=== PATIENT | female | born 1930 | race Caucasian/White ===

== ENCOUNTER 2017-04-13 06:24 | Inpatient (IN) | payer MEDICARE ==
[~2017-04-13] VITALS: Ht 162.5 cm; Wt 68.2 kg
[2017-04-13] VITALS (7 sets, daily range): BP systolic 88–158; BP diastolic 48–83
[~2017-04-13 06:24] MED LIST: A & D OINTMENT1 OIN T; ACETA PO; ACETAMINOPHEN325 M2; AGGRENOX 25 MG-1 CER PO; AGGRENOX 25/2001 EA PO; AMOXIL500 M1 PO; ASPIRIN81 MG; ATIVAN0.5 MG PO; ATIVAN1 MG PO; ATOXIMETIN-B1 CAP PO; ATROVENT NASAL15 ML; AZITHROMYCIN250 MG PO; CARE PO; CEPACOL2 M1 PO; CIPRO500 MG PO; DAYPRO600 M1 PO; DESOXIMETASONE0.25% T; DETROL PO; DEXTROMETHORPHAN PO; DILANTIN50 MG PO; DULCOLAX10 M1 RC; EARACHE; FIBER THERAPY0.52 GM PO; FLUTICASON0.05 MG/AC; FUROSEMIDE20 MG PO; FUROSEMIDE40 MG PO; IMODIUM2 MG PO; K-DUR20 MEQ PO; K-TAB20 MEQ PO; LEVAQUIN500 M2 PO; LOPERAMIDE HCL2 M1 PO; LORATADINE10 M1 PO; LORAZEPAM0.5 MG PO; MAALOX UD SUSP.30 ML PO; MACROBID100 M1 PO; MACRODANTIN100 MG PO; MAPAP500 MG PO; MELATONIN10 M1 PO; METFORMIN HCL500 MG PO; MIDODRINE HCL5 MG PO; MILK OF MA400 MG/5 M PO; MIRALAX POWDER17 G1 PO; MISOPROSTOL200 MCG PO; MULTIPLE VITAMI1 TAB PO; NITROFURANTOIN100 MG PO; NITROGLYCER0.1 MG/HR T; OMEPRAZOLE D/R20 MG PO; OXYBUTYNIN5 MG PO; OYSTER CALCIUM/1 TA1 PO; PHENOBARBITAL32.4 M1 PO; PHENOBARBITAL32.4 MG PO; PHENYTOIN SODI100 M3 PO; PHENYTOIN100 MG PO; POTASSIUM CHLO20 MEQ; POTASSIUM CHLO20 MEQ PO; PRAVASTATIN SOD40 MG PO; PYRIDIATE200 MG PO; PYRIDIUM200 MG PO; Plendil2.5 MG PO; ROBITUSSIN100 MG/5 M PO; SERTRALINE HCL50 MG PO; SERTRALINE HYDR50 MG PO; TEARS NATURALE1 EACH OP; TOVIAZ8 MG PO; TRAMADOL50 MG; TYLENOL325 M2 PO; ULTRAM50 MG PO; VESICARE10 MG; VISINE 30 ML15 ML OU; VOLTAREN1% T; ZOLOFT25 MG PO; ZOLOFT50 MG PO; [UNRECOGNIZED DRUG - OTHER] PO; [UNRECOGNIZED DRUG - OTHER] PO; [UNRECOGNIZED DRUG - OTHER] PO
[2017-04-13 06:48] LABS: BASO % 0.6 % (0.0-1.0); EOS # 0.5 10*3/uL (0.0-0.4); EOS % 7.5 % (1.0-4.0); HEMATOCRIT 37.6 % (37.0-47.0); HEMOGLOBIN 12.1 g/dl (12.0-16.0); LYMPH # 1.4 10*3/uL (1.3-4.4); LYMPH % 19.4 % (27.0-41.0); MEAN CELL VOLUME 95.9 fl (81.0-99.0); MEAN CORPUSCULAR HGB 30.9 pg (27.0-31.0); MEAN CORPUSCULAR HGB CONC 32.2 g/dl (33.0-37.0); MEAN PLATELET VOLUME 8.7 fl (9.6-12.3); MONO # 0.7 10*3/uL (0.1-1.0); MONO % 10.1 % (3.0-9.0); NEUT # 4.3 10*3/uL (2.3-7.9); NEUT % 62.1 % (47.0-73.0); PLATELET COUNT AUTOMATED 295 10*3/uL (130-400); RED BLOOD COUNT 3.92 10*6/uL (4.10-5.10); RED CELL DISTRI WIDTH 14.7 % (0-14.5)
[2017-04-13 07:02] LABS: ACT PARTIAL THROMBO TIME 24.1 SECONDS (20.8-31.5); INTERNATIONAL NORM RATIO 1.1 (2.0-3.5)
[2017-04-13 07:07] LABS: ALBUMIN 2.6 gm/dl (3.1-4.5); ALKALINE PHOSPHATASE 110 U/L (45-117); BUN 5 mg/dl (7-24); CHLORIDE 112 mmol/L (98-107); CREATININE 0.85 mg/dL (0.55-1.02); LIPASE 80 U/L (73-393); MAGNESIUM 2.3 mg/dL (1.5-2.1); POTASSIUM 3.7 mmol/L (3.5-5.1); SGOT/AST 17 IU/L (3-35); SGPT/ALT 16 U/L (12-78); SODIUM 142 mmol/L (136-145); TROPONIN I 0.027 ng/ml (<0.045)
[2017-04-13 07:40] LABS: BILIRUBIN NEGATIVE (NEGATIVE); BLOOD NEGATIVE (NEGATIVE); CLARITY SL CLOUDY (CLEAR); COLOR YELLOW (YELLOW); GLUCOSE NEGATIVE (NEGATIVE); KETONE NEGATIVE (NEGATIVE); LEUKO ESTERASE 3+ (NEGATIVE); NITRITE POSITIVE (NEGATIVE); PH 6.5 (5.0-9.0); SPECIFIC GRAVITY <= 1.005 (1.005-1.030); UROBILINOGEN 0.2 E.U./dl (0.2-1.0)
[2017-04-13 07:54] LABS: BACTERIA 3+; RBC 0-2 rbc/hpf (0-2)
[2017-04-13] MEDS ORDERED: DUONEB 3 MG/3 ML3 M1 INH ×2 (10:05→10:11)
[2017-04-13] MEDS ORDERED: PAIN RELIEVER650 MG PO (10:10)
[2017-04-13] MEDS ORDERED: AGGRENOX 25/2001 EA PO (10:11)
[2017-04-13] MEDS ORDERED: NORCO 5-325 TA1 EACH PO (10:13)
[2017-04-13] MEDS ORDERED: PHENOBARBITAL32.4 M2 PO (10:23)
[2017-04-13] MEDS ORDERED: EXTENDED PHENY200 MG PO (10:25)
[2017-04-13] MEDS ORDERED: PHENYTOIN50 M1 PO (10:27)
[2017-04-13] MEDS ORDERED: TEARS NATURALE OPH (10:29)
[2017-04-13] MEDS ORDERED: ZOLOFT50 MG PO (10:33)
[2017-04-13] MEDS ORDERED: VITAMIN D-32000 UNIT PO (10:33)
[2017-04-13] MEDS ORDERED: NITRO-DUR1 EACH TD (12:10)
[2017-04-14] VITALS: BP 145/56
[2017-04-14 04:00] VITALS: BP 140/60
[2017-04-14 05:48] LABS: BASO % 0.4 % (0.0-1.0); EOS # 0.4 10*3/uL (0.0-0.4); EOS % 5.6 % (1.0-4.0); HEMATOCRIT 40.3 % (37.0-47.0); LYMPH # 1.2 10*3/uL (1.3-4.4); LYMPH % 17.2 % (27.0-41.0); MEAN CELL VOLUME 96.4 fl (81.0-99.0); MEAN CORPUSCULAR HGB 31.1 pg (27.0-31.0); MEAN CORPUSCULAR HGB CONC 32.3 g/dl (33.0-37.0); MEAN PLATELET VOLUME 9.1 fl (9.6-12.3); MONO # 0.6 10*3/uL (0.1-1.0); MONO % 9.1 % (3.0-9.0); NEUT # 4.5 10*3/uL (2.3-7.9); NEUT % 67.3 % (47.0-73.0); PLATELET COUNT AUTOMATED 311 10*3/uL (130-400); RED BLOOD COUNT 4.18 10*6/uL (4.10-5.10); RED CELL DISTRI WIDTH 14.6 % (0-14.5); WHITE BLOOD COUNT 6.7 10*3/uL (4.8-10.8)
[2017-04-14 05:59] LABS: ALBUMIN 2.7 gm/dl (3.1-4.5); ALKALINE PHOSPHATASE 115 U/L (45-117); BUN 7 mg/dl (7-24); CHLORIDE 109 mmol/L (98-107); CHOLESTEROL 170 mg/dL (<200); CREATININE 0.91 mg/dL (0.55-1.02); HDL CHOLESTEROL 44 mg/dl (40-60); LDL CHOLESTEROL 102 mg/dL (9-159); MAGNESIUM 2.1 mg/dL (1.5-2.1); PHOSPHOROUS 3.3 mg/dL (2.5-4.9); POTASSIUM 3.5 mmol/L (3.5-5.1); SGOT/AST 20 IU/L (3-35); SGPT/ALT 19 U/L (12-78); SODIUM 142 mmol/L (136-145); TOTAL PROTEIN 7.4 gm/dL (6.4-8.2); TRIGLYCERIDES 119 mg/dl (<150); VLDL CHOLESTEROL 24 mg/dL (6-40)
[2017-04-14 06:14] LABS: PHENOBARBITAL (LUMINAL) 13.1 ug/ml (15-40); PHENYTOIN (DILANTIN) 5.9 ug/ml (10-20)
[2017-04-14 06:34] LABS: ACT PARTIAL THROMBO TIME 25.4 SECONDS (20.8-31.5); INTERNATIONAL NORM RATIO 1.1 (2.0-3.5)
[2017-04-14 08:00] VITALS: BP 156/40
[2017-04-14 08:45] LABS: VITAMIN D, 25-HYDROXY 39.6 ng/mL (30-100)
[2017-04-14 12:00] VITALS: BP 142/50
[2017-04-14 16:00] VITALS: BP 156/46
[2017-04-14 20:00] VITALS: BP 128/52; BP 138/64
[2017-04-15] VITALS: BP 152/54
[2017-04-15 08:00] VITALS: BP 152/59
[2017-04-15 08:24] LABS: BASO % 0.4 % (0.0-1.0); EOS # 0.4 10*3/uL (0.0-0.4); EOS % 4.6 % (1.0-4.0); HEMATOCRIT 44.3 % (37.0-47.0); HEMOGLOBIN 14.2 g/dl (12.0-16.0); LYMPH # 1.2 10*3/uL (1.3-4.4); LYMPH % 14.1 % (27.0-41.0); MEAN CELL VOLUME 96.7 fl (81.0-99.0); MEAN CORPUSCULAR HGB CONC 32.1 g/dl (33.0-37.0); MEAN PLATELET VOLUME 8.7 fl (9.6-12.3); MONO # 0.7 10*3/uL (0.1-1.0); MONO % 8.2 % (3.0-9.0); NEUT # 6.1 10*3/uL (2.3-7.9); NEUT % 72.3 % (47.0-73.0); PLATELET COUNT AUTOMATED 315 10*3/uL (130-400); RED BLOOD COUNT 4.58 10*6/uL (4.10-5.10); RED CELL DISTRI WIDTH 14.6 % (0-14.5); WHITE BLOOD COUNT 8.4 10*3/uL (4.8-10.8)
[2017-04-15 08:50] LABS: BUN 8 mg/dl (7-24); CHLORIDE 106 mmol/L (98-107); CREATININE 0.86 mg/dL (0.55-1.02); POTASSIUM 3.6 mmol/L (3.5-5.1); SODIUM 142 mmol/L (136-145)
[2017-04-15 12:00] VITALS: BP 115/67
[2017-04-15 16:00] VITALS: BP 111/56
[2017-04-15 20:00] VITALS: BP 135/77
[2017-04-16] VITALS: BP 141/59
[2017-04-16 06:52] LABS: BUN 13 mg/dl (7-24); CHLORIDE 108 mmol/L (98-107); POTASSIUM 3.4 mmol/L (3.5-5.1); SODIUM 141 mmol/L (136-145)
[2017-04-16 06:53] LABS: CREATININE 0.96 mg/dL (0.55-1.02)
[2017-04-16 08:00] VITALS: BP 135/60; BP 147/62
[2017-04-16] MEDS ORDERED: NORCO 5-325 TA1 EACH PO (09:46)
[2017-04-16] MEDS ORDERED: LASIX20 MG PO (09:49)
[2017-04-16] MEDS ORDERED: K-TAB20 MEQ PO (09:49)
[2017-04-16 12:00] VITALS: BP 140/65
== END 2017-04-16 13:09 | disposition other institution (70) | DRG 291 ==
LOC: ED 06:24 → EDHOLD 07:20 → 5E 07:20
PROVIDERS: Internal Medicine; Student in an Organized Health Care Education/Training Program; ADMIT Internal Medicine
DX: I13.0 Hypertensive heart and chronic kidney disease with heart failure and stage 1 through stage 4 chronic kidney disease, or unspecified chronic kidney disease (principal); I50.31 Acute diastolic (congestive) heart failure; E43 Unspecified severe protein-calorie malnutrition; G93.41 Metabolic encephalopathy; I07.1 Rheumatic tricuspid insufficiency; E83.41 Hypermagnesemia; I27.2 Other secondary pulmonary hypertension; N39.0 Urinary tract infection, site not specified; J40 Bronchitis, not specified as acute or chronic; Z96.641 Presence of right artificial hip joint; G40.909 Epilepsy, unspecified, not intractable, without status epilepticus; F32.9 Major depressive disorder, single episode, unspecified; E78.5 Hyperlipidemia, unspecified; N18.3 Chronic kidney disease, stage 3 (moderate); B96.4 Proteus (mirabilis) (morganii) as the cause of diseases classified elsewhere; Z95.0 Presence of cardiac pacemaker; Z85.828 Personal history of other malignant neoplasm of skin; Z87.81 Personal history of (healed) traumatic fracture; Z87.01 Personal history of pneumonia (recurrent); Z68.27 Body mass index [BMI] 27.0-27.9, adult; Z87.440 Personal history of urinary (tract) infections; Z90.49 Acquired absence of other specified parts of digestive tract; Z88.2 Allergy status to sulfonamides; Z88.8 Allergy status to other drugs, medicaments and biological substances; Z79.82 Long term (current) use of aspirin; Z79.899 Other long term (current) drug therapy

== ENCOUNTER 2017-07-22 07:59 | Inpatient (IN) | payer MEDICARE ==
[~2017-07-22] VITALS: Ht 160 cm; Wt 71.7 kg
[~2017-07-22 07:59] MED LIST changes: +DUONEB 3 MG/3 ML3 M1 INH; +EXTENDED PHENY200 MG PO; +LASIX20 MG PO; +NITRO-DUR1 EACH TD; +NORCO 5-325 TA1 EACH PO; +PAIN RELIEVER650 MG PO; +PHENOBARBITAL32.4 M2 PO; +PHENYTOIN50 M1 PO; +TEARS NATURALE OPH; +VITAMIN D-32000 UNIT PO
[2017-07-22 08:10] VITALS: BP 160/62
[2017-07-22 08:34] LABS: BASO % 0.4 % (0.0-1.0); EOS # 0.1 10*3/uL (0.0-0.4); EOS % 1.3 % (1.0-4.0); HEMATOCRIT 38.9 % (37.0-47.0); HEMOGLOBIN 12.6 g/dl (12.0-16.0); LYMPH # 1.3 10*3/uL (1.3-4.4); LYMPH % 13.6 % (27.0-41.0); MEAN CELL VOLUME 95.3 fl (81.0-99.0); MEAN CORPUSCULAR HGB 30.9 pg (27.0-31.0); MEAN CORPUSCULAR HGB CONC 32.4 g/dl (33.0-37.0); MEAN PLATELET VOLUME 9.8 fl (9.6-12.3); MONO # 1.1 10*3/uL (0.1-1.0); NEUT # 7.2 10*3/uL (2.3-7.9); NEUT % 73.4 % (47.0-73.0); PLATELET COUNT AUTOMATED 208 10*3/uL (130-400); RED BLOOD COUNT 4.08 10*6/uL (4.10-5.10); RED CELL DISTRI WIDTH 14.7 % (0-14.5); WHITE BLOOD COUNT 9.8 10*3/uL (4.8-10.8)
[2017-07-22 08:44] LABS: ACT PARTIAL THROMBO TIME 47.6 SECONDS (20.8-31.5); INTERNATIONAL NORM RATIO 3.8 (2.0-3.5)
[2017-07-22 08:54] LABS: ALBUMIN 3.2 gm/dl (3.1-4.5); ALKALINE PHOSPHATASE 114 U/L (45-117); BUN 13 mg/dl (7-24); CHLORIDE 106 mmol/L (98-107); CREATININE 1.02 mg/dL (0.55-1.02); POTASSIUM 4.1 mmol/L (3.5-5.1); SGOT/AST 14 IU/L (3-35); SGPT/ALT 14 U/L (12-78); SODIUM 139 mmol/L (136-145); TOTAL PROTEIN 7.6 gm/dL (6.4-8.2)
--- NOTE | 2017-07-22 09:31 | NUR ---
PT TO ULTRASOUND AT THIS TIME.
--- NOTE | 2017-07-22 09:48 | NUR ---
PT STILL IN ULTRASOUND. ADMISSION REPORT WILL BE CALLED WHEN ANTIBIOTIC IS STARTED AND PATIENT RETURNS TO EXAM ROOM.
--- NOTE | 2017-07-22 10:20 | NUR ---
PT RETURNS FROM ULTRASOUND
[2017-07-22 10:39] VITALS: BP 152/86
--- NOTE | 2017-07-22 10:57 | NUR ---
BERKLEY, NURSE AT [facility] AWARE OF PATIENT BEING ADMITTED.
[2017-07-22 11:14] VITALS: BP 119/63
--- NOTE | 2017-07-22 11:14 | NUR ---
A 86, admitted to , under the services of RUSSEL Oshea DO with a diagnosis of CELLULITIS. Chief complaint is RED, SWOLLEN, WARM LEGS. Patient arrived via stretcher from ER. Monitor applied. Initial assessment completed. Vital signs taken and recorded. RUSSEL OSHEA DO notified of admission to the unit. Orders received. See assessment for past medical history, medications and allergies. Patient and/or family oriented to unit. [facility] visitation policy reviewed. Clothing/patient valuable form completed. TRICIA MANN
[2017-07-22] MEDS ORDERED: ATIVAN0.5 MG PO (12:49)
[2017-07-22] MEDS ORDERED: COUMADIN2 MG PO (12:51)
[2017-07-22] MEDS ORDERED: MILK OF MA400 MG/5 M PO (12:56)
[2017-07-22] MEDS ORDERED: EXTENDED PHENY300 MG PO (12:59)
[2017-07-22] MEDS ORDERED: PROAIR HFA8.5 GM INH (13:01)
[2017-07-22] MEDS ORDERED: VITAMIN D33000 UNIT PO (13:03)
[2017-07-22 16:00] VITALS: BP 150/65
--- NOTE | 2017-07-22 16:05 | NUR ---
DR WASSERMAN NOTIFIED OF CONSULT. STATED THAT HE WOULD SPEAK WITH DR JULIO.
--- NOTE | 2017-07-22 17:37 | NUR ---
MORPHINE 2MG GIVEN FOR BILATERAL LEG PAIN.
[2017-07-22 20:00] VITALS: BP 158/60
[2017-07-23] VITALS: BP 158/57
--- NOTE | 2017-07-23 06:00 | NUR ---
LAB IN WITH PT AT THIS TIME. PT IN BED, DROWSY. PT VOICES NO COMPLAINTS AT THIS TIME. TOLERATED PO MED PASS WELL. WILL CONTINUE TO MONITOR.
[2017-07-23 06:50] LABS: BASO % 0.4 % (0.0-1.0); BUN 13 mg/dl (7-24); CHLORIDE 107 mmol/L (98-107); CREATININE 0.92 mg/dL (0.55-1.02); EOS # 0.2 10*3/uL (0.0-0.4); EOS % 1.6 % (1.0-4.0); HEMOGLOBIN 11.3 g/dl (12.0-16.0); LYMPH # 1.4 10*3/uL (1.3-4.4); LYMPH % 14.5 % (27.0-41.0); MEAN CELL VOLUME 95.1 fl (81.0-99.0); MEAN CORPUSCULAR HGB 30.7 pg (27.0-31.0); MEAN CORPUSCULAR HGB CONC 32.3 g/dl (33.0-37.0); MEAN PLATELET VOLUME 10.2 fl (9.6-12.3); MONO # 1.4 10*3/uL (0.1-1.0); MONO % 14.2 % (3.0-9.0); NEUT # 6.6 10*3/uL (2.3-7.9); PLATELET COUNT AUTOMATED 183 10*3/uL (130-400); RED BLOOD COUNT 3.68 10*6/uL (4.10-5.10); RED CELL DISTRI WIDTH 14.9 % (0-14.5); SODIUM 142 mmol/L (136-145); WHITE BLOOD COUNT 9.6 10*3/uL (4.8-10.8)
[2017-07-23 07:10] LABS: ACT PARTIAL THROMBO TIME 42.3 SECONDS (20.8-31.5); INTERNATIONAL NORM RATIO 2.8 (2.0-3.5)
[2017-07-23 08:00] VITALS: BP 183/66
--- NOTE | 2017-07-23 08:30 | NUR ---
FOREIGN POLICY OFFICER VS. SLEEPING IN CHAIR. PT IS LTC AT [facility].
--- NOTE | 2017-07-23 09:00 | NUR ---
PT C/O BILATERAL LEG PAIN REQUESTED AND ADMINSITERED IVP MORPHINE PER ORDERS, WILL MONITOR EFFECTS, CALL LIGHT WITH IN REACH
--- NOTE | 2017-07-23 09:07 | NUR ---
FREDDY PLUMMER Meir [id number] Please refer to the physician's history and physical for past medical history, comorbid conditions, and allergies. Diagnosis: COAGULOPATHY, CELLULITIS Moy Score: 16,AT RISK WOUND DESCRIPTIONS: Patient has intact scab noted to RLE. No drainage noted. No redness surrounings scab. Bandaid was removed. Surface the patient is resting on: Position Pro SKIN PREVENTION RECOMMENDATION: 1. Pressure redistribution support surface as appropriate 2. Elevate heels 3. Remove boots/TEDS every shift and reapply 4. Head of bed 30 degrees as tolerated 5. Assess nutrition and hydration 6. Manage moisture 7. Avoid the use of containment devices while in bed 8. Use absorptive products on surfaces limit layers of linens on bed 9. Turn and reposition every 1-2 hours in bed and every 1 hour in chair as tolerated 10. Weight shifts every 15 minutes while up in chair 11. Offloading with pillows or device to keep heels elevated off bed 12. Monitor skin at least every shift 13. Inspect under medical devices twice a day WOUND TREATMENT RECOMMENDATIONS: No treatment needed at this time.
[2017-07-23 09:41] LABS: VITAMIN D, 25-HYDROXY 80.1 ng/mL (30-100)
--- NOTE | 2017-07-23 09:57 | NUR ---
PT REPORTS THAT PRN PAIN MEDICATION IS EFFECTIVE AT THIS TIME, NO FURTHER C/O PAIN AT THIS TIME, RESTING IN CHAIR, CALL LIGHT WITH IN REACH
--- NOTE | 2017-07-23 10:56 | NUR ---
Confirmed with [facility], patient is LTC there and can return when medically stable for discharge, no precert needed.
[2017-07-23 12:00] VITALS: BP 150/117
--- NOTE | 2017-07-23 15:32 | NUR ---
PHYSICAL THERAPY PAtient lethargic, unbale to keep eyes open for discussion. Will attempt at later date. PAtient is terminal operator care. Thank you for this referral. Jeannine Partida,PT
--- NOTE | 2017-07-23 15:32 | NUR ---
Patient approached for Occupational Therapy evaluation this date. Patient in bed and lethargic. She c/o having "too many pills" and requests that OTR return in am for evaluation when she is more awake. OTR will attempt evaluation at another date. Thank you for this referral. Gabriela Cage OTR/L[place]
[2017-07-23 16:00] VITALS: BP 155/62
[2017-07-23 20:00] VITALS: BP 183/75
--- NOTE | 2017-07-23 21:37 | NUR ---
PATIENT RESTING IN BED FEET UP ON PILLOW CALL LIGHT IN REACH CO OF PAIN MEDICATED WITH PRN MORPHINE WILL ASSESS EFFECTIVENSS OF MEDICATION,
[2017-07-24] VITALS: BP 145/58
[2017-07-24 07:28] LABS: INTERNATIONAL NORM RATIO 1.7 (2.0-3.5)
[2017-07-24 08:00] VITALS: BP 158/62
--- NOTE | 2017-07-24 09:00 | NUR ---
MEDICATED WITH PRN PO TYLENOL FOR RIGHT LEG PAIN AND ALSO PRN PO DULCOLAX FOR CONSTIPATION.
--- NOTE | 2017-07-24 10:00 | NUR ---
PRN PO TYLENOL EFFECTIVE, PER PATIENT.
--- NOTE | 2017-07-24 10:10 | NUR ---
PHYSICAL THERAPY House keeping mopping floor at this time. Thank you for this referral. Jeannine Partida,PT
[2017-07-24 12:32] VITALS: BP 153/67
--- NOTE | 2017-07-24 12:48 | NUR ---
PHYSICAL THERAPY PAtient evaluated this date on 5, full evaluation to follow. D/C PT after evaluation. Patient is chronic detention care and reports non ambulatory for extended period of time. PAtient also reports alexandria lift at long term. PAtient with significant right neglect with no active movement right LE upon demand and significant lean to left supine in bed and cervical rotation to left with extreme cervical tightness when attempting to assist patient find neutral and midline denoting chronic in nature. PAtient with complaints right posterior thigh pain: significant hematoma and ecchymosis noted ( patient recalls no incident or trauma). PAtient is high complexity via chart review, tests and evaluation: 88250. No PT skills/needs. Recommned daily passive ROM with nursing with daily care. D/c Pt after evaluaiton: no PT skills needed at this time. Thank you for this referral. Jeannine Partida,PT
--- NOTE | 2017-07-24 15:44 | NUR ---
Patient being discharged back to [facility] transportation scheduled for 5PM with PAMELA Gómez and nursing notified.
[2017-07-24 16:00] VITALS: BP 160/64
--- NOTE | 2017-07-24 17:10 | NUR ---
PATIENT DISCHARGED TO [facility] BY AMBULANCE SERVICE AT THIS TIME.
--- NOTE | 2017-07-24 17:17 | NUR ---
REPORT CALLED TO RECEIVING NURSE AT [facility].
== END 2017-07-24 17:10 | disposition home or self-care (01) | DRG 299 ==
LOC: ED 07:59 → 5E 09:39 → EDHOLD 09:39 → 5E 09:47
PROVIDERS: Internal Medicine; Student in an Organized Health Care Education/Training Program; ADMIT Internal Medicine
DX: I87.2 Venous insufficiency (chronic) (peripheral) (principal); G93.41 Metabolic encephalopathy; D68.59 Other primary thrombophilia; E44.1 Mild protein-calorie malnutrition; I48.0 Paroxysmal atrial fibrillation; G40.909 Epilepsy, unspecified, not intractable, without status epilepticus; L03.90 Cellulitis, unspecified; E53.8 Deficiency of other specified B group vitamins; E78.5 Hyperlipidemia, unspecified; I10 Essential (primary) hypertension; S70.12XA Contusion of left thigh, initial encounter; R73.9 Hyperglycemia, unspecified; M19.90 Unspecified osteoarthritis, unspecified site; Z96.641 Presence of right artificial hip joint; R26.2 Difficulty in walking, not elsewhere classified; X58.XXXA Exposure to other specified factors, initial encounter; Y93.89 Activity, other specified; Y92.89 Other specified places as the place of occurrence of the external cause; Z95.0 Presence of cardiac pacemaker; Z79.01 Long term (current) use of anticoagulants; Y99.8 Other external cause status; Z90.49 Acquired absence of other specified parts of digestive tract; Z88.2 Allergy status to sulfonamides; Z88.8 Allergy status to other drugs, medicaments and biological substances; Z79.1 Long term (current) use of non-steroidal anti-inflammatories (NSAID); Z79.899 Other long term (current) drug therapy; Z79.51 Long term (current) use of inhaled steroids; Z68.28 Body mass index [BMI] 28.0-28.9, adult

== ENCOUNTER 2017-07-30 15:58 | Inpatient (IN) | payer MEDICARE ==
[~2017-07-30] VITALS: Ht 162.6 cm; Wt 71.0 kg
[~2017-07-30 15:58] MED LIST changes: +COUMADIN3 M1 PO; +EXTENDED PHENY300 MG PO; +PROAIR HFA8.5 GM INH; +VITAMIN D33000 UNIT PO
[2017-07-30 16:26] LABS: BILIRUBIN NEGATIVE (NEGATIVE); BLOOD TRACE-INTACT (NEGATIVE); CLARITY SL CLOUDY (CLEAR); COLOR YELLOW (YELLOW); GLUCOSE NEGATIVE (NEGATIVE); KETONE NEGATIVE (NEGATIVE); LEUKO ESTERASE 3+ (NEGATIVE); NITRITE POSITIVE (NEGATIVE); PH 5.5 (5.0-9.0); SPECIFIC GRAVITY <= 1.005 (1.005-1.030); UROBILINOGEN 0.2 E.U./dl (0.2-1.0)
[2017-07-30 16:30] VITALS: BP 152/56
[2017-07-30 16:38] LABS: BACTERIA 4+; RBC 0-2 rbc/hpf (0-2); WBC TNTC wbc/hpf (0-5)
[2017-07-30 17:10] LABS: BASO % 0.4 % (0.0-1.0); EOS # 0.3 10*3/uL (0.0-0.4); EOS % 3.3 % (1.0-4.0); HEMATOCRIT 37.7 % (37.0-47.0); HEMOGLOBIN 11.8 g/dl (12.0-16.0); LYMPH # 1.3 10*3/uL (1.3-4.4); LYMPH % 15.8 % (27.0-41.0); MEAN CELL VOLUME 97.7 fl (81.0-99.0); MEAN CORPUSCULAR HGB 30.6 pg (27.0-31.0); MEAN CORPUSCULAR HGB CONC 31.3 g/dl (33.0-37.0); MEAN PLATELET VOLUME 9.1 fl (9.6-12.3); MONO # 0.9 10*3/uL (0.1-1.0); NEUT # 5.5 10*3/uL (2.3-7.9); NEUT % 69.1 % (47.0-73.0); PLATELET COUNT AUTOMATED 299 10*3/uL (130-400); RED BLOOD COUNT 3.86 10*6/uL (4.10-5.10); RED CELL DISTRI WIDTH 15.6 % (0-14.5); WHITE BLOOD COUNT 7.9 10*3/uL (4.8-10.8)
[2017-07-30 17:26] LABS: ALKALINE PHOSPHATASE 106 U/L (45-117); BUN 15 mg/dl (7-24); CHLORIDE 104 mmol/L (98-107); CREATININE 0.98 mg/dL (0.55-1.02); POTASSIUM 4.8 mmol/L (3.5-5.1); SGOT/AST 27 IU/L (3-35); SGPT/ALT 20 U/L (12-78); SODIUM 139 mmol/L (136-145)
[2017-07-30 17:32] VITALS: BP 140/70
--- NOTE | 2017-07-30 18:02 | NUR ---
PT MEDICATED PER EMAR. IV FLUIDS INFUSING WITHOUT DIFFICULTY. WILL CONTINUE TO MONITOR.
--- NOTE | 2017-07-30 18:57 | NUR ---
A 86, admitted to , under the services of DA Cota DO with a diagnosis of UTI. Chief complaint is UTI SYMPTOMS. Patient arrived via ambulance from ER. Monitor applied. Initial assessment completed. Vital signs taken and recorded. DA COTA DO notified of admission to the unit. Orders received. See assessment for past medical history, medications and allergies. Patient and/or family oriented to unit. [facility] Clothing/patient valuable form completed. EUN GONZALEZ
[2017-07-30 19:40] VITALS: BP 155/81
[2017-07-30 20:00] VITALS: BP 155/81
--- NOTE | 2017-07-30 22:14 | NUR ---
DR. PERRY NOTIFIED OF MED REQ VERIFIED AND UTD AND MADE AWARE OF PT BEING ADENTULOUS AND ON A LCS [facility] SOFT DIET AT [facility]. DR. ROBERTSON UPDATE.
[2017-07-31] VITALS: BP 132/58
[2017-07-31 07:06] LABS: INTERNATIONAL NORM RATIO 2.7 (2.0-3.5)
[2017-07-31 07:10] LABS: BUN 16 mg/dl (7-24); CHLORIDE 109 mmol/L (98-107); CREATININE 0.89 mg/dL (0.55-1.02); PHOSPHOROUS 3.1 mg/dL (2.5-4.9); POTASSIUM 4.3 mmol/L (3.5-5.1); SODIUM 140 mmol/L (136-145)
--- NOTE | 2017-07-31 07:30 | NUR ---
ASSUMED CARE OF PT AT THIS TIME, RESPS EASY AND NONLABORED WITH NO S/S OF DISTRESS CALL LIGHT WITH IN REACH
[2017-07-31 07:44] LABS: BASO % 0.4 % (0.0-1.0); EOS # 0.2 10*3/uL (0.0-0.4); EOS % 2.9 % (1.0-4.0); HEMATOCRIT 34.4 % (37.0-47.0); HEMOGLOBIN 11.1 g/dl (12.0-16.0); LYMPH # 1.2 10*3/uL (1.3-4.4); LYMPH % 14.8 % (27.0-41.0); MEAN CELL VOLUME 96.6 fl (81.0-99.0); MEAN CORPUSCULAR HGB 31.2 pg (27.0-31.0); MEAN CORPUSCULAR HGB CONC 32.3 g/dl (33.0-37.0); MEAN PLATELET VOLUME 9.8 fl (9.6-12.3); NEUT # 5.7 10*3/uL (2.3-7.9); NEUT % 69.7 % (47.0-73.0); PLATELET COUNT AUTOMATED 303 10*3/uL (130-400); RED BLOOD COUNT 3.56 10*6/uL (4.10-5.10); RED CELL DISTRI WIDTH 15.6 % (0-14.5); WHITE BLOOD COUNT 8.2 10*3/uL (4.8-10.8)
[2017-07-31 08:00] VITALS: BP 122/68
--- NOTE | 2017-07-31 08:30 | NUR ---
MANAGER IT SECURITY VS. PT IS LTC AT [facility]. CAN RETURN UPON DC.
--- NOTE | 2017-07-31 09:18 | NUR ---
PT AWAKE A&O X3 VS STABLE. LUNGS CLEAR AND DIMISHED THROUGHOUT. HEART RATE NORMAL. ABD SOFT NON DISTENDED, TENDER PT "COMPLAINS OF PAIN IN LOWER ABD BECAUSE OF HER INFECTION" "STATES IT IS A 2-3 OUT OF 10" "PT STATES SHE DOES NOT WANT ANY PAIN MEDS" PT HAS OLD HEMATOMA ON RIGHT POSTERIOR THIGH WARM TENDER TO TOUCH. NON-PITTING EDEMA LEFT LOWER EXTREMITY. PT DENIES ANY DYSURIA,CHEST PAIN,SOB CONTINUE TO ASSESS MINI CALL SPN
--- NOTE | 2017-07-31 09:30 | NUR ---
PT A&O X 3 VERY PLEASANT, BIG SMILES. PT DENIES ANY PAIN IN ABD " STATES HER BELLY NO LONGER HURTS HER" DENIES ANY CHEST PAIN, SOB. CONTIUNE TO ASSESS MINI GAN
--- NOTE | 2017-07-31 10:41 | NUR ---
This nurse was asked to evaluate patient buttocks and coccyx. No open areas noted at this time. No drainage noted. Area is pink in color. Patient does have an ecchymotic areas to right upper thigh.
--- NOTE | 2017-07-31 11:30 | NUR ---
PT A&O X3. DR GRAHAM SEE PT HE IS AWARE OF HER PT AND INR. PT HAS NO C/O PAIN AT THIS TIME. SHIMON TO ASSESS MINI CALL SPN
[2017-07-31 12:00] VITALS: BP 120/58
[2017-07-31 16:00] VITALS: BP 117/57
[2017-07-31 20:00] VITALS: BP 122/52
--- NOTE | 2017-07-31 20:32 | NUR ---
PT MEDICATED W/PRN ATIVAN AND NORCO PER PT REQUEST FOR C/O ANXIETY AND LOWER ABD PAIN.
--- NOTE | 2017-07-31 21:00 | NUR ---
PRN ATIVAN AND NORCO EFFECTIVE. PT RESTING QUIETLY IN BED WITHOUT ANY S/S OF ANXIETY/DISTRESS NOTED.
[2017-08-01] VITALS: BP 134/57
--- NOTE | 2017-08-01 06:34 | NUR ---
PT REFUSED LAB DRAW THIS AM.
[2017-08-01 08:00] VITALS: BP 151/55
[2017-08-01 09:18] LABS: BASO % 0.4 % (0.0-1.0); EOS # 0.2 10*3/uL (0.0-0.4); EOS % 3.3 % (1.0-4.0); HEMATOCRIT 34.8 % (37.0-47.0); HEMOGLOBIN 11.3 g/dl (12.0-16.0); LYMPH # 1.5 10*3/uL (1.3-4.4); LYMPH % 21.7 % (27.0-41.0); MEAN CELL VOLUME 96.1 fl (81.0-99.0); MEAN CORPUSCULAR HGB 31.2 pg (27.0-31.0); MEAN CORPUSCULAR HGB CONC 32.5 g/dl (33.0-37.0); MEAN PLATELET VOLUME 9.1 fl (9.6-12.3); MONO # 0.7 10*3/uL (0.1-1.0); MONO % 10.6 % (3.0-9.0); NEUT # 4.4 10*3/uL (2.3-7.9); NEUT % 63.6 % (47.0-73.0); PLATELET COUNT AUTOMATED 292 10*3/uL (130-400); RED BLOOD COUNT 3.62 10*6/uL (4.10-5.10); RED CELL DISTRI WIDTH 15.9 % (0-14.5)
[2017-08-01 09:45] LABS: BUN 18 mg/dl (7-24); CHLORIDE 110 mmol/L (98-107); CREATININE 0.94 mg/dL (0.55-1.02); PHOSPHOROUS 3.4 mg/dL (2.5-4.9); SODIUM 142 mmol/L (136-145)
[2017-08-01 09:47] LABS: INTERNATIONAL NORM RATIO 2.1 (2.0-3.5)
[2017-08-01 12:00] VITALS: BP 126/54
[2017-08-01] MEDS ORDERED: NORCO 5-325 TA1 EACH PO (13:48)
[2017-08-01] MEDS ORDERED: ATIVAN0.5 MG PO (13:48)
[2017-08-01] MEDS ORDERED: AMINOPHYLLIN200 MG PO (13:48)
--- NOTE | 2017-08-01 14:28 | NUR ---
Patient is being discharged back to [facility], transportation scheduled with [facility] at 4:30 PM, [place] and nursing notified.
--- NOTE | 2017-08-01 15:32 | NUR ---
DISCHARGE REPORT GIVEN TO AMERICA DAILEY AT [facility].
--- NOTE | 2017-08-01 15:32 | NUR ---
PRN ATIVAN GIVEN PER PT REQUEST FOR AMBULANCE RIDE FOR DISCHARGE.
--- NOTE | 2017-08-01 17:36 | NUR ---
Discharge instructions reviewed with patient/family. Patient receptive and verbalizes understanding. Follow-up care arranged. Written instructions given to patient/family. DORIAN GUAN
== END 2017-08-01 17:36 | disposition other institution (70) | DRG 689 ==
LOC: ED 15:58 → EDHOLD 18:08 → 5E 18:08
PROVIDERS: Internal Medicine Nephrology; Nurse Practitioner; ADMIT Internal Medicine
DX: N30.01 Acute cystitis with hematuria (principal); G93.41 Metabolic encephalopathy; D68.59 Other primary thrombophilia; E87.8 Other disorders of electrolyte and fluid balance, not elsewhere classified; E44.1 Mild protein-calorie malnutrition; E83.41 Hypermagnesemia; I48.0 Paroxysmal atrial fibrillation; G40.909 Epilepsy, unspecified, not intractable, without status epilepticus; D64.9 Anemia, unspecified; D72.821 Monocytosis (symptomatic); E53.8 Deficiency of other specified B group vitamins; E66.3 Overweight; E78.5 Hyperlipidemia, unspecified; I10 Essential (primary) hypertension; R29.6 Repeated falls; M19.90 Unspecified osteoarthritis, unspecified site; J30.2 Other seasonal allergic rhinitis; F32.9 Major depressive disorder, single episode, unspecified; S80.12XA Contusion of left lower leg, initial encounter; Z96.641 Presence of right artificial hip joint; X58.XXXA Exposure to other specified factors, initial encounter; Z90.49 Acquired absence of other specified parts of digestive tract; Z95.0 Presence of cardiac pacemaker; Z81.8 Family history of other mental and behavioral disorders; Z88.2 Allergy status to sulfonamides; Z87.81 Personal history of (healed) traumatic fracture; Z88.8 Allergy status to other drugs, medicaments and biological substances; Z79.01 Long term (current) use of anticoagulants; Z79.82 Long term (current) use of aspirin; Z79.899 Other long term (current) drug therapy; Y93.9 Activity, unspecified; Y92.89 Other specified places as the place of occurrence of the external cause; Y99.8 Other external cause status; Z86.73 Personal history of transient ischemic attack (TIA), and cerebral infarction without residual deficits

== ENCOUNTER 2017-09-08 17:56 | Inpatient (IN) | payer MEDICARE ==
[~2017-09-08] VITALS: Ht 160 cm; Wt 72.2 kg
[2017-09-08] VITALS (8 sets, daily range): BP systolic 113–165; BP diastolic 26–79
--- NOTE | ~2017-09-08 | EKG ---
[place], [place] ELECTROCARDIOGRAM REPORT NAME: FREDDY PLUMMER UNIT #: [id number] ROOM: 425 DOCTOR: GRISELDA VILLA,NELIA BIRTHDATE: [birth year] DOS: 09/09/2017 TIME: 0013 hours. IMPRESSION: 1. Possible atrial fibrillation. 2. Intermittent ventricular pacing. 3. ST-T changes or pauses due to cardiac memory. 4. Intermittent atrial pacing. NELIA VILLALOBOS MD CM:EKGRPT:ELECTROCARDIOGRAM REPORT [id number] NELIA VILLALOBOS MD
--- NOTE | ~2017-09-08 | EKG ---
[place], [place] ELECTROCARDIOGRAM REPORT NAME: FREDDY PLUMMER UNIT #: [id number] ROOM: 425 DOCTOR: GRISELDA VILLA,NELIA BIRTHDATE: [birth year] DOS: 09/09/2017 TIME: 7:51 a.m. IMPRESSION: 1. Possible atrial fibrillation. 2. Intermittent ventricular pacing with fusion beats. 3. ST-T changes, possibly due to cardiac memory. NELIA VILLALOBOS MD CM:EKGRPT:ELECTROCARDIOGRAM REPORT [id number] NELIA VILLALOBOS MD
--- NOTE | ~2017-09-08 | EKG ---
[place], [place] ELECTROCARDIOGRAM REPORT NAME: FREDDY PLUMMER UNIT #: [id number] ROOM: 425 DOCTOR: GRISELDA VILLA,NELIA BIRTHDATE: [birth year] DOS: 09/08/2017 TIME: 1755 IMPRESSION: 1. Atrial fibrillation. 2. Intermittent ventricular pacing. 3. Anterolateral and inferior ST-T changes, possibly due to cardiac memory. NELIA VILLALOBOS MD CM:EKGRPT:ELECTROCARDIOGRAM REPORT [phone] NELIA VILLALOBOS MD
--- NOTE | ~2017-09-08 | EKG ---
[place], [place] ELECTROCARDIOGRAM REPORT NAME: FREDDY PLUMMER UNIT #: [id number] ROOM: 425 DOCTOR: GRISELDA VILLA,NELIA BIRTHDATE: [birth year] DOS: 09/08/2017 TIME: 2108 IMPRESSION: 1. Atrial fibrillation with controlled ventricular rate. 2. Anterolateral and inferior ST-T changes, consider ischemia. 3. Normal QT interval. NELIA VILLALOBOS MD CM:EKGRPT:ELECTROCARDIOGRAM REPORT [id number] NELIA VILLALOBOS MD
[~2017-09-08 17:56] MED LIST changes: +AMINOPHYLLIN200 MG PO
[2017-09-08 18:42] LABS: BASO % 0.2 % (0.0-1.0); EOS % 0.1 % (1.0-4.0); HEMATOCRIT 46.8 % (37.0-47.0); HEMOGLOBIN 14.9 g/dl (12.0-16.0); LYMPH # 0.9 10*3/uL (1.3-4.4); LYMPH % 4.9 % (27.0-41.0); MEAN CELL VOLUME 97.5 fl (81.0-99.0); MEAN CORPUSCULAR HGB CONC 31.8 g/dl (33.0-37.0); MEAN PLATELET VOLUME 9.9 fl (9.6-12.3); MONO # 1.2 10*3/uL (0.1-1.0); MONO % 6.5 % (3.0-9.0); NEUT # 16.3 10*3/uL (2.3-7.9); NEUT % 87.8 % (47.0-73.0); PLATELET COUNT AUTOMATED 210 10*3/uL (130-400); RED CELL DISTRI WIDTH 14.6 % (0-14.5); WHITE BLOOD COUNT 18.6 10*3/uL (4.8-10.8)
[2017-09-08 18:58] LABS: ACT PARTIAL THROMBO TIME 50.8 SECONDS (20.8-31.5)
[2017-09-08 19:00] LABS: ALBUMIN 3.7 gm/dl (3.1-4.5); CREATININE 1.29 mg/dL (0.55-1.02); POTASSIUM 4.5 mmol/L (3.5-5.1)
[2017-09-08 19:01] LABS: TROPONIN I 0.02 ng/ml (<0.045)
[2017-09-08 19:09] LABS: INTERNATIONAL NORM RATIO 5.6 (2.0-3.5)
[2017-09-08] MEDS ORDERED: DULCOLAX10 M1 R (19:58)
[2017-09-08] MEDS ORDERED: MACROBID100 M1 PO (19:59)
[2017-09-08 20:56] LABS: BILIRUBIN 1+ (NEGATIVE); BLOOD 2+ (NEGATIVE); CLARITY CLOUDY (CLEAR); COLOR YELLOW (YELLOW); GLUCOSE NEGATIVE (NEGATIVE); KETONE TRACE (NEGATIVE); LEUKO ESTERASE 3+ (NEGATIVE); NITRITE POSITIVE (NEGATIVE); UROBILINOGEN 0.2 E.U./dl (0.2-1.0)
[2017-09-08 21:33] LABS: BACTERIA 2+; EPITHELIAL CELLS TNTC; WBC TNTC wbc/hpf (0-5)
[2017-09-09] VITALS: BP 162/59
[2017-09-09 04:00] VITALS: BP 130/50
[2017-09-09 06:13] LABS: BASO % 0.1 % (0.0-1.0); EOS % 0.3 % (1.0-4.0); HEMATOCRIT 43.4 % (37.0-47.0); HEMOGLOBIN 13.8 g/dl (12.0-16.0); LYMPH # 0.8 10*3/uL (1.3-4.4); MEAN CELL VOLUME 98.9 fl (81.0-99.0); MEAN CORPUSCULAR HGB 31.4 pg (27.0-31.0); MEAN CORPUSCULAR HGB CONC 31.8 g/dl (33.0-37.0); MEAN PLATELET VOLUME 9.9 fl (9.6-12.3); MONO # 1.2 10*3/uL (0.1-1.0); MONO % 8.6 % (3.0-9.0); NEUT # 11.5 10*3/uL (2.3-7.9); NEUT % 84.5 % (47.0-73.0); PLATELET COUNT AUTOMATED 184 10*3/uL (130-400); RED BLOOD COUNT 4.39 10*6/uL (4.10-5.10); RED CELL DISTRI WIDTH 14.6 % (0-14.5); WHITE BLOOD COUNT 13.6 10*3/uL (4.8-10.8)
[2017-09-09 06:44] LABS: ALBUMIN 3.2 gm/dl (3.1-4.5); CREATININE 1.51 mg/dL (0.55-1.02); PHOSPHOROUS 3.1 mg/dL (2.5-4.9); TOTAL PROTEIN 8.2 gm/dL (6.4-8.2)
[2017-09-09 06:46] LABS: INTERNATIONAL NORM RATIO 4.5 (2.0-3.5)
[2017-09-09 07:12] LABS: VITAMIN D, 25-HYDROXY 73.3 ng/mL (30-100)
[2017-09-09 07:18] LABS: FREE T4 0.96 ng/dl (0.76-1.46)
[2017-09-09 07:23] LABS: THYROID STIM HORMONE (HS) 2.08 uIU/ml (0.358-4.75)
[2017-09-09 08:00] VITALS: BP 133/62
[2017-09-09 12:00] VITALS: BP 155/69
[2017-09-09 16:00] VITALS: BP 132/72
[2017-09-09 20:00] VITALS: BP 136/71
[2017-09-10] VITALS: BP 164/68
[2017-09-10 07:18] LABS: BILIRUBIN NEGATIVE (NEGATIVE); BLOOD 1+ (NEGATIVE); CLARITY SL CLOUDY (CLEAR); COLOR YELLOW (YELLOW); GLUCOSE NEGATIVE (NEGATIVE); KETONE NEGATIVE (NEGATIVE); LEUKO ESTERASE TRACE (NEGATIVE); NITRITE NEGATIVE (NEGATIVE); SPECIFIC GRAVITY <= 1.005 (1.005-1.030); UROBILINOGEN 0.2 E.U./dl (0.2-1.0)
[2017-09-10 08:00] VITALS: BP 154/69
[2017-09-10 08:00] LABS: BASO % 0.4 % (0.0-1.0); EOS # 0.4 10*3/uL (0.0-0.4); EOS % 4.8 % (1.0-4.0); HEMATOCRIT 39.9 % (37.0-47.0); LYMPH % 12.9 % (27.0-41.0); MEAN CELL VOLUME 97.3 fl (81.0-99.0); MEAN CORPUSCULAR HGB 31.7 pg (27.0-31.0); MEAN CORPUSCULAR HGB CONC 32.6 g/dl (33.0-37.0); MEAN PLATELET VOLUME 9.9 fl (9.6-12.3); MONO # 0.9 10*3/uL (0.1-1.0); MONO % 11.8 % (3.0-9.0); NEUT # 5.4 10*3/uL (2.3-7.9); NEUT % 69.7 % (47.0-73.0); PLATELET COUNT AUTOMATED 159 10*3/uL (130-400); RED CELL DISTRI WIDTH 14.5 % (0-14.5); WHITE BLOOD COUNT 7.7 10*3/uL (4.8-10.8)
[2017-09-10 08:14] LABS: BACTERIA 1+; EPITHELIAL CELLS 15-20; WBC 31-40 wbc/hpf (0-5)
[2017-09-10 08:15] LABS: BUN 19 mg/dl (7-24); CHLORIDE 110 mmol/L (98-107); POTASSIUM 4.1 mmol/L (3.5-5.1); SODIUM 140 mmol/L (136-145)
[2017-09-10 08:17] LABS: CREATININE 1.05 mg/dL (0.55-1.02)
[2017-09-10 08:39] LABS: INTERNATIONAL NORM RATIO 2.7 (2.0-3.5)
[2017-09-10 12:00] VITALS: BP 151/70
[2017-09-10 16:00] VITALS: BP 157/63
[2017-09-10 20:49] VITALS: BP 185/79
[2017-09-11] VITALS: BP 155/79
[2017-09-11 07:47] LABS: INTERNATIONAL NORM RATIO 1.7 (2.0-3.5)
[2017-09-11 08:00] VITALS: BP 172/91
[2017-09-11] MEDS ORDERED: HYDROCODONE-AC1 EAC1 PO (10:44)
[2017-09-11] MEDS ORDERED: CEFUROXIME AXE250 MG PO (10:44)
[2017-09-11 12:00] VITALS: BP 175/94
== END 2017-09-11 14:21 | disposition home or self-care (01) | DRG 871 ==
LOC: ED 17:56 → EDHOLD 21:40 → 4E 21:40
PROVIDERS: Emergency Medicine; Internal Medicine; Student in an Organized Health Care Education/Training Program
DX: A41.9 Sepsis, unspecified organism (principal); N17.0 Acute kidney failure with tubular necrosis; I48.2 Chronic atrial fibrillation; D68.59 Other primary thrombophilia; E83.41 Hypermagnesemia; I11.0 Hypertensive heart disease with heart failure; G40.909 Epilepsy, unspecified, not intractable, without status epilepticus; I50.9 Heart failure, unspecified; N30.00 Acute cystitis without hematuria; E78.5 Hyperlipidemia, unspecified; F32.9 Major depressive disorder, single episode, unspecified; J30.2 Other seasonal allergic rhinitis; Z96.641 Presence of right artificial hip joint; R65.20 Severe sepsis without septic shock; M54.6 Pain in thoracic spine; M15.9 Polyosteoarthritis, unspecified; T14.8XXA Other injury of unspecified body region, initial encounter; X58.XXXA Exposure to other specified factors, initial encounter; E53.8 Deficiency of other specified B group vitamins; E66.3 Overweight; R26.2 Difficulty in walking, not elsewhere classified; Z66 Do not resuscitate; Z51.5 Encounter for palliative care; Y93.89 Activity, other specified; Y92.89 Other specified places as the place of occurrence of the external cause; Z95.0 Presence of cardiac pacemaker; Z79.899 Other long term (current) drug therapy; Z88.2 Allergy status to sulfonamides; Z88.8 Allergy status to other drugs, medicaments and biological substances; Z87.81 Personal history of (healed) traumatic fracture; Z90.49 Acquired absence of other specified parts of digestive tract; Y99.8 Other external cause status; Z68.28 Body mass index [BMI] 28.0-28.9, adult; Z79.82 Long term (current) use of aspirin; Z79.01 Long term (current) use of anticoagulants

== ENCOUNTER 2017-11-09 17:24 | Emergency (ER) | payer MEDICARE ==
[~2017-11-09] VITALS: Wt 68.0 kg
[~2017-11-09 17:24] MED LIST changes: +CEFUROXIME AXE250 MG PO; +DULCOLAX10 M1 R; +HYDROCODONE-AC1 EAC1 PO
[2017-11-09 18:08] LABS: BASO % 0.6 % (0.0-1.0); EOS # 0.5 10*3/uL (0.0-0.4); EOS % 7.4 % (1.0-4.0); HEMATOCRIT 37.3 % (37.0-47.0); HEMOGLOBIN 11.7 g/dl (12.0-16.0); LYMPH # 1.5 10*3/uL (1.3-4.4); LYMPH % 23.5 % (27.0-41.0); MEAN CELL VOLUME 95.6 fl (81.0-99.0); MEAN CORPUSCULAR HGB CONC 31.4 g/dl (33.0-37.0); MEAN PLATELET VOLUME 9.4 fl (9.6-12.3); MONO % 14.6 % (3.0-9.0); NEUT # 3.5 10*3/uL (2.3-7.9); NEUT % 53.6 % (47.0-73.0); PLATELET COUNT AUTOMATED 254 10*3/uL (130-400); RED CELL DISTRI WIDTH 15.8 % (0-14.5); WHITE BLOOD COUNT 6.5 10*3/uL (4.8-10.8)
[2017-11-09 18:25] LABS: ALBUMIN 3.1 gm/dl (3.1-4.5); ALKALINE PHOSPHATASE 107 U/L (45-117); BUN 12 mg/dl (7-24); CHLORIDE 105 mmol/L (98-107); CREATININE 1.01 mg/dL (0.55-1.02); SGOT/AST 17 IU/L (3-35); SGPT/ALT 12 U/L (12-78); SODIUM 138 mmol/L (136-145); TOTAL PROTEIN 7.2 gm/dL (6.4-8.2)
[2017-11-09 18:36] LABS: INTERNATIONAL NORM RATIO 1.2 (2.0-3.5)
[2017-11-09 20:29] VITALS: BP 163/75
== END 2017-11-09 20:45 | disposition short-term general hospital (02) ==
LOC: ED 17:24
PROVIDERS: Nurse Practitioner Family
DX: S06.5X0A Traumatic subdural hemorrhage without loss of consciousness, initial encounter (principal); S01.111A Laceration without foreign body of right eyelid and periocular area, initial encounter; I48.91 Unspecified atrial fibrillation; F32.9 Major depressive disorder, single episode, unspecified; I10 Essential (primary) hypertension; E78.5 Hyperlipidemia, unspecified; G40.909 Epilepsy, unspecified, not intractable, without status epilepticus; Z88.2 Allergy status to sulfonamides; Z88.8 Allergy status to other drugs, medicaments and biological substances; Z79.82 Long term (current) use of aspirin; Z79.899 Other long term (current) drug therapy; Z90.49 Acquired absence of other specified parts of digestive tract; W18.39XA Other fall on same level, initial encounter; Y93.89 Activity, other specified; Y92.128 Other place in nursing home as the place of occurrence of the external cause; Y99.8 Other external cause status

== ENCOUNTER 2017-11-27 08:06 | Inpatient (IN) | payer MEDICARE ==
[~2017-11-27] VITALS: Ht 162.5 cm; Wt 61.7 kg
--- NOTE | ~2017-11-27 | DS ---
[place], [place] DISCHARGE SUMMARY NAME[facility]UMMER [id number] UN[facility] #: [id number] ROOM: 316 DOCTOR: TARA TORRES MD BIRTHDATE: [birth year] DOS: 11/30/2017 CHIEF COMPLAINT: "I wanted to kill myself." HISTORY OF PRESENT ILLNESS: This is an 87-year-old female who resides at [facility] in [place]. The patient on the day of admission was found with a power cord wrapped around her neck, stating that she did not want to live like this anymore and wanted to end it all. Because of the severity of her depression and the fact that she had not been sleeping or eating well and allegedly attempted suicide, it was thought that further inpatient evaluation to assess lethality and to stabilize on medication while engaging in individual and holcomb milieu activity would be warranted. The patient was admitted to the U to accomplish these tasks. PAST MEDICAL HISTORY: Includes acute renal failure with tubular necrosis, atrial fibrillation, vitamin B12 deficient, degenerative joint disease, folic acid deficiency, right hip fracture, hyperlipidemia, hypertension, gait disturbance, leukocytosis, seasonal allergies, seizure disorder and subdural hematoma. SUMMARY OF HOSPITAL COURSE: The patient was admitted to the unit where her Remeron which was started at 15 mg a day was increased to 22.5 mg a day because she was having very significant sleep disturbance. Rozerem was later added at 8 mg a day with excellent results. The patient's serum ammonia level was elevated upon admission, so she was started on lactulose 30 grams b.i.d. With these minor changes in medication, the patient did verbalize marked improvement and stated that her sleep and appetite both felt better. She was very homesick for [facility] and wanted to return there as soon as possible. Because I do follow her there, we thought that it would be a reasonable thing to return her back home, so she could have further care there. MENTAL STATUS AT DISCHARGE: The patient is alert and oriented to person, place and that she does know she is in the hospital, but not time. Mood does seem to be strongly trending towards euthymia. Affect is much more appropriate. There is no carl or hypomania. There are no auditory or visual hallucinations. No delusions, no paranoia. Short term memory is poor, otherwise she is intact. FINAL DIAGNOSES: Major depression, recurrent, severe and Alzheimer's dementia. DISPOSITION: The patient is being discharged back to [facility]. I will follow her upon her readmission there. Medically and psychiatrically she is stable. Her biopsychosocial needs will be met by the facility staff. [place], [place] DISCHARGE SUMMARY NAME: FREDDY PLUMMER UNIT #: [id number] ROOM: [facility] DOCTOR: TARA TORRES MD BIRTHDATE: [birth year] TARA TORRES MD CM:DISCHARJUN TARA TORRES MD 11/30/17 0952 interface
--- NOTE | ~2017-11-27 | WRIGHTHP ---
[place], [place] PATIENT HISTORY AND PHYSICAL EXAM NAME[id number] UNIT #: [id number] ROOM: 312 DOCTOR: TARA TORRES MD BIRTHDATE: [birth year] DOS: 11/28/2017 CHIEF COMPLAINT: "I wanted to kill myself." HISTORY OF PRESENT ILLNESS: This is an 87-year-old white female who resides at [facility]. On the day of admission, the patient was found with a power cord wrapped around her neck, stating that she did not want to live like this anymore and wanted to end it all. The patient had been increasingly depressed and despondent there and had not been sleeping or eating well. She has been uncooperative with aspects of her care. This alleged suicide attempt, though was significant enough to warrant further inpatient evaluation to assess for lethality, to stabilize on medication, to engage in individual and holcomb milieu activity, returning then back to the least restrictive environment when psychiatrically stable. PAST MEDICAL HISTORY: Rather lengthy and includes acute renal failure with tubular necrosis, AFib, vitamin B12 deficiency, degenerative joint disease, folic acid deficiency, right hip fracture, hyperlipidemia, hypertension, gait disturbance, leukocytosis, seasonal allergies, seizure disorder, subdural hematoma. MENTAL STATUS: The patient is alert and oriented to person, place, but not necessarily time. Her speech is rather garbled and at times difficult to understand. Her responses tended to be short and simple. There is an air of depression and anxiety about her. She does endorse multiple neurovegetative symptoms. There is no hypomania or carl. There are no overt psychotic symptoms noted. Short term memory has gaps. DIAGNOSIS: Major depression, recurrent, severe. PLAN: The patient has already been started on Remeron 15 mg at bedtime; however, nurses report she still had a very difficult time sleeping and slept approximately 1 hour last evening. I will go ahead and augment with Rozerem at this point at 8 mg a day. Routine screening examinations revealed her to have an elevated serum ammonia level, so I will add lactulose 30 grams b.i.d. and recheck the level in several days to make certain that it is coming down. I will go ahead and have her engage in individual and holcomb milieu activities with the ultimate plan then to discharge to the least restrictive environment when psychiatrically stable. [place], [place] PATIENT HISTORY AND PHYSICAL EXAM NAME: FREDDY PLUMMER UNIT #: [id number] ROOM: 312 DOCTOR: TARA TORRES MD BIRTHDATE: [birth year] TARA TORRES MD CM:HISPHYS:PATIENT HISTORY AND PHYSICAL EXAMINATION 1201 [id number] TARA TORRES MD 11/28/17 1228 interface
--- NOTE | ~2017-11-27 | PR ---
[place], [place] PROGRESS NOTE NAME: FREDDY PLUMMER UNIT #: [id number] ROOM: 316 DOCTOR: MARITZA GOMEZ DO BIRTHDATE: [birth year] DOS: 11/29/2017 CHIEF COMPLAINT: "I'm not hungry." SUMMARY OF VISIT: The patient was interviewed in the dining room after she had already finished her breakfast. In her medical history, she has been increasingly ____ and despondent at the [facility] with her previous alleged suicide attempt ____ here for evaluation. Per report, nursing states that she has had a very difficult time sleeping, in and out of sleep the previous night. MENTAL STATUS: The patient is alert and oriented to person and place but not to time. Her speech is rather garbled and difficult to understand. Her responses are short and blunted. She does have some depression with symptoms of anxiety. There are no signs or symptoms of carl or hypomania. There are no overt psychotic symptoms noted. No delusions. Short-term memory has gaps. PLAN: We will increase her Remeron to 22.5 mg at night to maximize potential benefit. Her urine did grow Proteus Mirabilis. She per medical team be receiving Rocephin. We will continue to monitor her and get her in individual and group activities, planning for the least restrictive environment when psychiatrically stable. MARITZA GOMEZ DO TARA TORRES MD CM:PNTRANS [id number] MARITZA GOMEZ DO 11/30/17 0242 interface
[~2017-11-27 08:06] MED LIST changes: +CIPRO250 MG PO; +DUONEB 3 MG/3 ML3 M1 NEB; +MUCINEX1200 M1 PO
[2017-11-27 08:11] VITALS: BP 135/71
[2017-11-27 08:25] LABS: BASO % 0.4 % (0.0-1.0); EOS # 0.3 10*3/uL (0.0-0.4); EOS % 2.5 % (1.0-4.0); HEMATOCRIT 39.1 % (37.0-47.0); HEMOGLOBIN 12.3 g/dl (12.0-16.0); LYMPH # 1.7 10*3/uL (1.3-4.4); LYMPH % 15.1 % (27.0-41.0); MEAN CELL VOLUME 95.1 fl (81.0-99.0); MEAN CORPUSCULAR HGB 29.9 pg (27.0-31.0); MEAN CORPUSCULAR HGB CONC 31.5 g/dl (33.0-37.0); MEAN PLATELET VOLUME 9.7 fl (9.6-12.3); MONO # 1.2 10*3/uL (0.1-1.0); MONO % 11.2 % (3.0-9.0); NEUT # 7.7 10*3/uL (2.3-7.9); NEUT % 70.3 % (47.0-73.0); PLATELET COUNT AUTOMATED 217 10*3/uL (130-400); RED BLOOD COUNT 4.11 10*6/uL (4.10-5.10); RED CELL DISTRI WIDTH 16.2 % (0-14.5)
[2017-11-27 08:37] LABS: BUN 38 mg/dl (7-24); CHLORIDE 108 mmol/L (98-107); CREATININE 1.11 mg/dL (0.55-1.02); POTASSIUM 4.2 mmol/L (3.5-5.1); SODIUM 140 mmol/L (136-145)
[2017-11-27 08:45] LABS: ACETAMINOPHEN (TYLENOL) < 2.0 ug/ml (10-30); ETHYL ALCOHOL < 3.0 mg/dl (<3)
[2017-11-27 09:06] LABS: URINE AMPHETAMINES < 1000 (1000ng/ml); URINE BARBITURATES > 200 (200ng/ml); URINE BENZODIAZEPINES < 200 (200ng/ml); URINE CANNABINOIDS (THC) < 50 (50ng/ml); URINE COCAINE < 300 (300ng/ml); URINE METHADONE < 300 (300ng/ml); URINE OPIATES < 300 (300ng/ml)
[2017-11-27 09:07] LABS: URINE PHENCYCLIDINE < 25 (25ng/ml)
[2017-11-27 09:11] LABS: BILIRUBIN NEGATIVE (NEGATIVE); BLOOD NEGATIVE (NEGATIVE); CLARITY CLOUDY (CLEAR); COLOR YELLOW (YELLOW); GLUCOSE NEGATIVE (NEGATIVE); KETONE NEGATIVE (NEGATIVE); LEUKO ESTERASE 2+ (NEGATIVE); NITRITE NEGATIVE (NEGATIVE); PH 5.5 (5.0-9.0); UROBILINOGEN 0.2 E.U./dl (0.2-1.0)
[2017-11-27 09:25] LABS: EPITHELIAL CELLS 15-20; WBC 41-50 wbc/hpf (0-5)
[2017-11-27 09:26] LABS: BACTERIA 1+
[2017-11-27 09:40] VITALS: BP 126/53
[2017-11-27 12:35] VITALS: BP 131/60
[2017-11-27] MEDS ORDERED: MAXIMUM DAILY1 EACH PO (12:52)
[2017-11-27] MEDS ORDERED: VITAMIN C500 M8 PO (12:53)
[2017-11-27] MEDS ORDERED: METOPROLOL25 MG PO (12:56)
[2017-11-27] MEDS ORDERED: PROSOURCE275 GM PO (13:02)
[2017-11-27] MEDS ORDERED: ACIDOPHILUS LA1 EACH PO (13:08)
[2017-11-27 13:27] VITALS: BP 146/75
[2017-11-27] MEDS ORDERED: REMERON SOLTAB15 MG PO (14:08)
[2017-11-27 14:38] VITALS: BP 146/75
[2017-11-27 19:39] VITALS: BP 150/72
[2017-11-28 06:40] LABS: PHENOBARBITAL (LUMINAL) 16.1 ug/ml (15-40); PHENYTOIN (DILANTIN) 14.6 ug/ml (10-20)
[2017-11-28 08:15] LABS: VITAMIN D, 25-HYDROXY 97.7 ng/mL (30-100)
[2017-11-28 08:57] VITALS: BP 123/80
[2017-11-28 09:34] VITALS: BP 130/63
[2017-11-28 20:11] VITALS: BP 144/60
[2017-11-29 08:44] VITALS: BP 132/66
[2017-11-29 21:14] VITALS: BP 155/60
[2017-11-30 08:05] VITALS: BP 136/78
[2017-11-30] MEDS ORDERED: MIRTAZAPINE15 M2 PO (09:00)
[2017-11-30] MEDS ORDERED: ROZEREM8 MG PO (09:00)
[2017-11-30] MEDS ORDERED: LACTULOSE20 GM/30 M PO (09:00)
[2017-11-30] MEDS ORDERED: CEFUROXIME AXE250 MG PO (11:34)
== END 2017-11-30 13:55 | DRG 56 ==
LOC: ED 08:06 → 3N 10:43 → EDHOLD 10:43 → 3N 12:22
PROVIDERS: Emergency Medicine; Registered Nurse
DX: G30.9 Alzheimer's disease, unspecified (principal); I63.9 Cerebral infarction, unspecified; N30.00 Acute cystitis without hematuria; I48.91 Unspecified atrial fibrillation; R45.851 Suicidal ideations; G40.909 Epilepsy, unspecified, not intractable, without status epilepticus; B96.4 Proteus (mirabilis) (morganii) as the cause of diseases classified elsewhere; F33.2 Major depressive disorder, recurrent severe without psychotic features; E78.2 Mixed hyperlipidemia; F02.80 Dementia in other diseases classified elsewhere, unspecified severity, without behavioral disturbance, psychotic disturbance, mood disturbance, and anxiety; I12.9 Hypertensive chronic kidney disease with stage 1 through stage 4 chronic kidney disease, or unspecified chronic kidney disease; Z96.641 Presence of right artificial hip joint; R26.2 Difficulty in walking, not elsewhere classified; N18.3 Chronic kidney disease, stage 3 (moderate); M19.90 Unspecified osteoarthritis, unspecified site; Z88.2 Allergy status to sulfonamides; Z88.8 Allergy status to other drugs, medicaments and biological substances; Z79.1 Long term (current) use of non-steroidal anti-inflammatories (NSAID); Z79.899 Other long term (current) drug therapy; Z90.49 Acquired absence of other specified parts of digestive tract; Z95.0 Presence of cardiac pacemaker; Z82.0 Family history of epilepsy and other diseases of the nervous system

== ENCOUNTER 2017-12-02 20:05 | Inpatient (IN) | payer MEDICARE ==
[~2017-12-02] VITALS: Ht 162.6 cm; Wt 68.7 kg
--- NOTE | ~2017-12-02 | CON ---
[place], [place] REPORT OF CONSULTATION NAME: FREDDY PLUMMER UNIT #: [id number] ROOM: 425 DOCTOR: KLARISSA FERGUSON MD BIRTHDATE: [birth year] DOS: 12/05/2017 REASON FOR CONSULTATION: VRE UTI. HISTORY OF PRESENT ILLNESS: This is an 87-year-old female coming from residential facility with multiple history of suicidal attempts at this time. The patient is not the best historian and some of the history obtained is from medical records. On asking her, she is not completely alert and oriented. She denies having fever or chills. She did have a Ordoñez catheter previously, but her UA shows too numerous to count wbc's. Urine cultures shows VRE. I do not see any recent treatment of VRE in the urine. She has history of stroke with right-sided weakness, may have developed bladder retention, but her bladder scan did not show much urinary retention. At this time, mostly the complaints are confusion and I do not know what is her baseline at this time. PAST MEDICAL HISTORY: Significant for: 1. Acute kidney injury with tubular necrosis. 2. Atrial fibrillation. 3. Cerebrovascular accident. 4. Degenerative joint disease. 5. Depression. 6. Hip fracture on the right side. 7. Hyperlipidemia. 8. Hypertension. PAST SURGICAL HISTORY: History of cholecystectomy, right hip replacement, pacemaker placement. SOCIAL HISTORY: Nonalcoholic, no illicit drug use. Nonsmoker. FAMILY HISTORY: Not available. ALLERGIES: SULFA DRUGS AND GABAPENTIN. MEDICATIONS: Acetaminophen, ascorbic acid, bisacodyl, cefuroxime, axetil, furosemide, Blevins, probiotics, lactulose, mirtazapine, nitroglycerin, phenytoin, ramelteon which is Rozerem. PHYSICAL EXAMINATION: VITAL SIGNS: Noted. GENERAL: The patient is awake, but not alert, oriented x 3, minimally responsive. HEENT: Atraumatic, normocephalic. RESPIRATORY: Air entry bilaterally equal. No wheeze or crackles. Deformed chest. CARDIOVASCULAR: S1, S2 normal. No murmur, rubs or gallop. ABDOMEN: Soft, nontender, nondistended. Bowel sounds present. EXTREMITIES: Left lower leg has swelling compared to the right leg, slightly warm to palpation. No erythema, no tenderness, severe onychomycosis. Left upper arm swelling around the IV line site with bruising noted. [place], [place] REPORT OF CONSULTATION [id number] UN[facility] #: [id number] ROOM: 425 DOCTOR: KLARISSA FERGUSON MD BIRTHDATE: [birth year] NEUROLOGIC: Moving her right side, but not the left side. No facial deviation. No neck stiffness. LABORATORY DATA AND IMAGING: Noted. ASSESSMENT: 1. Urinary tract infection with VRE. 2. Altered mental status. 3. History of suicidal disorder. PLAN: 1. At this time, I do not have sufficient evidence to rule out urinary tract infection. She does have confusion and her UA shows pyuria. At this time, I will be inclined to treat her VRE. Start her on linezolid. Expect at least 7 days of treatment. 2. We will reevaluate her to see any change in her mental status, although I do not know what her baseline is. 2. Consider ultrasound retroperitoneum. Thank you for your consult. Please call if any questions. The patient will need contact isolation for VRE. Angie Ferguson MD CM:CONSTR:REPORT OF CONSULTATION 2333 12/06/17 0020 interface
--- NOTE | ~2017-12-02 | CON ---
[place], [place] REPORT OF CONSULTATION NAME: FREDDY PLUMMER UNIT #: [id number] ROOM: 425 DOCTOR: TARA TORRES MD BIRTHDATE: [birth year] DOS: 12/04/2017 PSYCHIATRIC CONSULT CHIEF COMPLAINT: "I don't like it at the penitentiary." SUMMARY: OF THE VISIT: This is an 87-year-old female recently admitted and discharged from the [facility] after an apparent suicide attempt. She was found by the nursing staff at [facility] with a power cord supposedly wrapped around her neck. She was admitted to the [facility] and had a very short stay almost instantaneously upon being admitted to the [facility], she denied suicidal thoughts. She continued to vehemently state that she does not like it at [facility] because they do not take care of her properly. She was discharged back to [facility] and subsequently was admitted now back to the hospital due to worsening confusion. Per the note on admission, the patient is believed to be very manipulative by the son stating that she does these behaviors purposely to be admitted to the hospital. MENTAL STATUS: At the time, the patient remains alert and oriented to self, place and that she knows she is in the hospital. She does report suicidal thoughts, but she denies neurovegetative symptoms. She has been sleeping well and she has been eating well. There is no psychosis. There is no carl. Memory has gaps. DIAGNOSIS: Major depression, recurrent, rule out malingering. PLAN: At this point, there does seem to be somewhat of a volitional component to her behavior. I do think that she does not like it at the penitentiary and does deliberately say and do things to leave the penitentiary. Her last bout on the [facility] was one where she immediately had relief upon admission to the psychiatric unit and then the symptoms recurred shortly after going back to [facility]. Whether or not it is useful or not to find her an alternative placement, I am not certain if this would be beneficial. I certainly do not want to feed into attention seeking behavior and utilize a psychiatric admission at this point that would only feed and to continue with act this way. At this point, I would err on the side of sending her back to [facility]. I can follow her there just as easily. Dr. Rodriguez also could follow her if that is appropriate. At this point, I would not proceed with a psychiatric admission. [place], [place] REPORT OF CONSULTATION NAME: FREDDY PLUMMER UNIT #: [id number] ROOM: 425 DOCTOR: TARA TORRES MD BIRTHDATE: [birth year] TARA TORRES MD CM:CONSTR:REPORT OF CONSULTATION 1017 12/13/17 1605 interface
[~2017-12-02 20:05] MED LIST changes: +ACIDOPHILUS LA1 EACH PO; +LACTULOSE20 GM/30 M PO; +MAXIMUM DAILY1 EACH PO; +METOPROLOL25 MG PO; +MIRTAZAPINE15 M2 PO; +PROSOURCE275 GM PO; +REMERON SOLTAB15 MG PO; +ROZEREM8 MG PO; +VITAMIN C500 M8 PO
[2017-12-02 20:16] VITALS: BP 149/62
[2017-12-02 20:43] LABS: ACETAMINOPHEN (TYLENOL) < 2.0 ug/ml (10-30); ALBUMIN 2.3 gm/dl (3.1-4.5); ALKALINE PHOSPHATASE 127 U/L (45-117); BUN 17 mg/dl (7-24); CHLORIDE 111 mmol/L (98-107); ETHYL ALCOHOL < 3.0 mg/dl (<3); POTASSIUM 4.2 mmol/L (3.5-5.1); SGOT/AST 36 IU/L (3-35); SGPT/ALT 18 U/L (12-78); SODIUM 142 mmol/L (136-145); TOTAL PROTEIN 6.5 gm/dL (6.4-8.2)
[2017-12-02] MEDS ORDERED: ROZEREM8 MG PO (21:34)
[2017-12-02] MEDS ORDERED: VITAMIN D32000 UNI1 PO (21:34)
[2017-12-02] MEDS ORDERED: K-TAB20 MEQ PO (21:35)
[2017-12-02] MEDS ORDERED: LASIX20 MG PO (21:35)
[2017-12-02 21:40] LABS: BASO % 0.2 % (0.0-1.0); EOS # 0.3 10*3/uL (0.0-0.4); EOS % 2.6 % (1.0-4.0); HEMATOCRIT 40.9 % (37.0-47.0); HEMOGLOBIN 12.6 g/dl (12.0-16.0); LYMPH # 2.1 10*3/uL (1.3-4.4); LYMPH % 21.5 % (27.0-41.0); MEAN CELL VOLUME 97.1 fl (81.0-99.0); MEAN CORPUSCULAR HGB 29.9 pg (27.0-31.0); MEAN CORPUSCULAR HGB CONC 30.8 g/dl (33.0-37.0); MEAN PLATELET VOLUME 9.9 fl (9.6-12.3); MONO # 1.2 10*3/uL (0.1-1.0); MONO % 12.7 % (3.0-9.0); NEUT # 6.1 10*3/uL (2.3-7.9); NEUT % 62.6 % (47.0-73.0); PLATELET COUNT AUTOMATED 178 10*3/uL (130-400); RED BLOOD COUNT 4.21 10*6/uL (4.10-5.10); RED CELL DISTRI WIDTH 16.6 % (0-14.5); WHITE BLOOD COUNT 9.8 10*3/uL (4.8-10.8)
[2017-12-02 22:46] LABS: BILIRUBIN NEGATIVE (NEGATIVE); BLOOD NEGATIVE (NEGATIVE); CLARITY CLOUDY (CLEAR); COLOR YELLOW (YELLOW); GLUCOSE NEGATIVE (NEGATIVE); KETONE NEGATIVE (NEGATIVE); LEUKO ESTERASE 2+ (NEGATIVE); NITRITE NEGATIVE (NEGATIVE); UROBILINOGEN 0.2 E.U./dl (0.2-1.0)
[2017-12-02 22:53] LABS: URINE AMPHETAMINES < 1000 (1000ng/ml); URINE BARBITURATES > 200 (200ng/ml); URINE BENZODIAZEPINES < 200 (200ng/ml); URINE CANNABINOIDS (THC) < 50 (50ng/ml); URINE COCAINE < 300 (300ng/ml); URINE METHADONE < 300 (300ng/ml); URINE OPIATES < 300 (300ng/ml); URINE PHENCYCLIDINE < 25 (25ng/ml)
[2017-12-02 22:55] LABS: WBC TNTC wbc/hpf (0-5)
[2017-12-02 22:56] LABS: BACTERIA TRACE
[2017-12-02 23:25] VITALS: BP 158/63
[2017-12-03] VITALS: BP 160/56
[2017-12-03 00:10] VITALS: BP 160/56
[2017-12-03 08:33] LABS: BASO % 0.3 % (0.0-1.0); EOS # 0.3 10*3/uL (0.0-0.4); EOS % 3.8 % (1.0-4.0); HEMATOCRIT 35.6 % (37.0-47.0); LYMPH # 1.6 10*3/uL (1.3-4.4); LYMPH % 25.2 % (27.0-41.0); MEAN CORPUSCULAR HGB CONC 30.9 g/dl (33.0-37.0); MEAN PLATELET VOLUME 9.6 fl (9.6-12.3); MONO # 0.7 10*3/uL (0.1-1.0); MONO % 11.3 % (3.0-9.0); NEUT # 3.9 10*3/uL (2.3-7.9); NEUT % 59.1 % (47.0-73.0); PLATELET COUNT AUTOMATED 168 10*3/uL (130-400); RED BLOOD COUNT 3.67 10*6/uL (4.10-5.10); RED CELL DISTRI WIDTH 16.7 % (0-14.5); WHITE BLOOD COUNT 6.5 10*3/uL (4.8-10.8)
[2017-12-03] MEDS ORDERED: NORCO 5-325 TA1 EACH PO (08:37)
[2017-12-03] MEDS ORDERED: MIRTAZAPINE15 M2 PO (08:38)
[2017-12-03] MEDS ORDERED: MIRTAZAPINE7.5 MG PO (08:38)
[2017-12-03 08:46] LABS: BUN 13 mg/dl (7-24); CHLORIDE 113 mmol/L (98-107); CREATININE 0.76 mg/dL (0.55-1.02); POTASSIUM 3.5 mmol/L (3.5-5.1); SODIUM 144 mmol/L (136-145)
[2017-12-03 08:51] LABS: ACT PARTIAL THROMBO TIME 22.8 SECONDS (20.8-31.5)
[2017-12-03 09:27] LABS: PHENOBARBITAL (LUMINAL) 15.7 ug/ml (15-40); PHENYTOIN (DILANTIN) 11.4 ug/ml (10-20)
[2017-12-03 10:35] LABS: VITAMIN D, 25-HYDROXY 79.7 ng/mL (30-100)
[2017-12-03 12:00] VITALS: BP 99/80
[2017-12-03 16:00] VITALS: BP 150/43
[2017-12-03 20:00] VITALS: BP 146/61
[2017-12-04] VITALS: BP 162/73
[2017-12-04 08:00] VITALS: BP 173/80
[2017-12-04 12:00] VITALS: BP 160/76
[2017-12-04 16:00] VITALS: BP 145/67
[2017-12-04 20:00] VITALS: BP 142/74
[2017-12-05] VITALS: BP 135/52
[2017-12-05 08:00] VITALS: BP 164/53
[2017-12-05 12:00] VITALS: BP 156/86
[2017-12-05 16:00] VITALS: BP 133/81
[2017-12-05 20:00] VITALS: BP 137/48
[2017-12-06] VITALS: BP 127/67
[2017-12-06 08:00] VITALS: BP 146/58
[2017-12-06 08:15] LABS: BASO % 0.2 % (0.0-1.0); EOS # 0.3 10*3/uL (0.0-0.4); EOS % 3.8 % (1.0-4.0); HEMATOCRIT 36.4 % (37.0-47.0); HEMOGLOBIN 11.4 g/dl (12.0-16.0); LYMPH # 1.8 10*3/uL (1.3-4.4); LYMPH % 20.5 % (27.0-41.0); MEAN CELL VOLUME 96.8 fl (81.0-99.0); MEAN CORPUSCULAR HGB 30.3 pg (27.0-31.0); MEAN CORPUSCULAR HGB CONC 31.3 g/dl (33.0-37.0); MEAN PLATELET VOLUME 9.9 fl (9.6-12.3); MONO # 0.9 10*3/uL (0.1-1.0); MONO % 10.3 % (3.0-9.0); NEUT # 5.7 10*3/uL (2.3-7.9); NEUT % 64.7 % (47.0-73.0); PLATELET COUNT AUTOMATED 188 10*3/uL (130-400); RED BLOOD COUNT 3.76 10*6/uL (4.10-5.10); RED CELL DISTRI WIDTH 16.3 % (0-14.5); WHITE BLOOD COUNT 8.7 10*3/uL (4.8-10.8)
[2017-12-06 08:43] LABS: CREATININE 0.64 mg/dL (0.55-1.02)
[2017-12-06 12:00] VITALS: BP 132/57
[2017-12-06 16:00] VITALS: BP 137/67
[2017-12-06 20:00] VITALS: BP 137/67
[2017-12-07] VITALS: BP 149/65
[2017-12-07 09:00] VITALS: BP 144/57
[2017-12-07 12:00] VITALS: BP 142/50
[2017-12-07 16:40] VITALS: BP 141/50
[2017-12-07 20:11] VITALS: BP 149/81
[2017-12-07 20:13] VITALS: BP 139/49
[2017-12-08] VITALS: BP 138/48
[2017-12-08 08:00] VITALS: BP 146/52
[2017-12-08 12:00] VITALS: BP 115/54
[2017-12-08] MEDS ORDERED: LINEZOLID600 MG PO (15:09)
[2017-12-08] MEDS ORDERED: ELIQUIS5 M1 PO (15:09)
[2017-12-08] MEDS ORDERED: NORCO 5-325 TA1 EACH PO (15:10)
[2017-12-08 16:57] VITALS: BP 123/61
== END 2017-12-08 17:57 | disposition other institution (70) | DRG 689 ==
LOC: ED 20:05 → 4E 23:07 → EDHOLD 23:07 → 4E 23:29
PROVIDERS: Emergency Medicine Emergency Medical Services; Internal Medicine; Registered Nurse
DX: N30.00 Acute cystitis without hematuria (principal); G93.41 Metabolic encephalopathy; E44.0 Moderate protein-calorie malnutrition; E87.8 Other disorders of electrolyte and fluid balance, not elsewhere classified; I82.622 Acute embolism and thrombosis of deep veins of left upper extremity; I48.1 Persistent atrial fibrillation; F33.9 Major depressive disorder, recurrent, unspecified; E83.41 Hypermagnesemia; E83.51 Hypocalcemia; D64.9 Anemia, unspecified; E53.8 Deficiency of other specified B group vitamins; Z96.641 Presence of right artificial hip joint; B97.89 Other viral agents as the cause of diseases classified elsewhere; E78.2 Mixed hyperlipidemia; E78.5 Hyperlipidemia, unspecified; G40.909 Epilepsy, unspecified, not intractable, without status epilepticus; I10 Essential (primary) hypertension; Z86.73 Personal history of transient ischemic attack (TIA), and cerebral infarction without residual deficits; Z90.49 Acquired absence of other specified parts of digestive tract; Z88.2 Allergy status to sulfonamides; Z88.8 Allergy status to other drugs, medicaments and biological substances; Z79.899 Other long term (current) drug therapy; Z95.0 Presence of cardiac pacemaker

== ENCOUNTER → 2017-12-12 | Outpatient (CLI) | payer MEDICARE ==
[~2017-12-12] MED LIST changes: +ELIQUIS5 M1 PO; +LINEZOLID600 MG PO; +MIRTAZAPINE7.5 MG PO; +VITAMIN D32000 UNI1 PO
== END | disposition home or self-care (01) ==
LOC: CT 08:47
DX: R10.9 Unspecified abdominal pain (principal); R31.9 Hematuria, unspecified; Z86.718 Personal history of other venous thrombosis and embolism; Z95.0 Presence of cardiac pacemaker

== ENCOUNTER 2018-08-25 21:14 | Inpatient (IN) | payer MEDICARE ==
[~2018-08-25] VITALS: Ht 162.6 cm; Wt 703.3 kg
--- NOTE | ~2018-08-25 | CON ---
[place], [place] REPORT OF CONSULTATION NAME: FREDDY PLUMMER UNIT #: [id number] ROOM: 421 DOCTOR: XIOMY CANO MD BIRTHDATE: [birth year] DOS: 08/26/2018 HISTORY OF PRESENT ILLNESS: An 87-year-old patient who presented with chief complaint of failure to thrive, guaiac positivity, anemia. I have been asked for assessment of the patient. The patient has had blood work on 08/21/2018, was found to have H and H of 6 and 23, microcytic indices, normal platelets. Her electrolytes at that time showed hypernatremic, hyperchloremic as 146 and 116 respectively with normal liver function tests. Comprehensive metabolic panel repeated and BUN and creatinine 48 and 1.8 with GFR of 33 and further correction of her electrolytes organized. H and H next day was 7.8 and 28 and she has been holding the same H and H till yesterday and today CBC shows 7 and 26 plus H and H. Comprehensive metabolic panel reassessed. GFR remains compromised and her magnesium is slightly elevated. Liver function tests normal. Hemoglobin A1c within normal limits. B12, folate are normal. PAST MEDICAL HISTORY: Associated with debility secondary to cerebrovascular accident, depression, bedridden, atrial fibrillation, hip fractures, systemic hypertension, seizures, subdural hematoma, and protein-calorie malnutrition. PAST SURGICAL HISTORY: Right hip prosthesis, pacemaker, and cholecystectomy. SOCIAL HISTORY: Resides in fpc, nonsmoker, nonalcohol consumer. FAMILY HISTORY: Noncontributory. ALLERGIES: GABAPENTIN AND SULFA. MEDICATIONS: List has been reviewed. She has been on ferrous sulfate, bisacodyl, docusate, and magnesium oxide amongst the other medications that is reviewed REVIEW OF SYSTEMS: In general, unable to communicate, aphasic. PHYSICAL EXAMINATION: VITAL SIGNS: Stable. HEENT: Head is normocephalic, nontraumatic. Mouth appears to be edentulous. NECK: Supple, no thyromegaly. CHEST: Symmetric anatomy. No wheezes, no rhonchi. HEART: Grade 1/6 systolic murmur in the left sternal border auscultated. ABDOMEN: Soft. No hepato-organomegaly. There is a scar of old cholecystectomy. Abdomen is slightly obese, nontender. EXTREMITIES: No cyanosis, no pedal edema, deformed, semi-flexed. NEUROLOGIC: Alert and cannot communicate. IMPRESSION: Profound anemia, renal insufficiency, borderline electrolyte imbalance, dehydration, cardiac dysrhythmia history, seizure disorder, atrial fibrillation history. PLAN AND DISCUSSION: This patient is guaiac positive; however, I am just informed by the RN that the patient is DNR and as far as transfusion and [place], [place] REPORT OF CONSULTATION NAME: FREDDY PLUMMER UNIT #: [id number] ROOM: 421 DOCTOR: XIOMY CANO MD BIRTHDATE: [birth year] endoscopic investigation of the patient or otherwise, the workup is on hold until the family makes otherwise decisions. As far as H and H is concerned, for the past 3 days have been stable. We are going to get a followup H and H in the morning. In case any dramatic drop, then we will discuss with the family again. Thank you very much indeed for your kind referral. XIOMY CANO MD CM:CONSTR:REPORT OF CONSULTATION 1855 08/27/18 0353 interface
--- NOTE | ~2018-08-25 | EKG ---
[place], [place] ELECTROCARDIOGRAM REPORT NAME: FREDDY PLUMMER UNIT #: [id number] ROOM: 421 DOCTOR: MARIO DRAFT REPORT BIRTHDATE: [birth year] [facility] Test Date: 2018-08-25 Test Time: 22:13:36 Pat Name: FREDDY PLUMMER Department: Room: 421 Gender: F String Top Sealer: Shaq Kelly : 1930 Requested By: SOHAIL SINCLAIR Order Number: [id number] Reading MD: Shaq Barrientos MD Measurements Intervals [place] Rate: 68 P: 26 WV: 389 QRS: 51 QRSD: 86 T: 35 QT: 411 QTc: 438 Interpretive Statements Sinus rhythm Prolonged WV interval Consider left ventricular hypertrophy Compared to ECG 05/14/2018 07:21:40 First degree AV block now present Electronically Signed On 08-26-2018 14:48:52 PST by Shaq Barrientos MD CM:EKGRPT:ELECTROCARDIOGRAM REPORT [id number] SOHAIL MAURER DRAFT REPORT SOHAIL SINCLAIR DO
[~2018-08-25 21:14] MED LIST changes: +NATURE'S BLEND F1 MG PO; +NUED1CAP PO; +PRINIVIL10 MG PO; +VICODIN 5-3001 EACH PO
[2018-08-25 21:17] VITALS: BP 156/47
[2018-08-25 22:17] LABS: BASO % 0.4 % (0.0-1.0); EOS # 0.2 10*3/uL (0.0-0.4); HEMATOCRIT 26.9 % (37.0-47.0); HEMOGLOBIN 7.5 g/dl (12.0-16.0); LYMPH % 25.1 % (27.0-41.0); MEAN CELL VOLUME 85.4 fl (81.0-99.0); MEAN CORPUSCULAR HGB 23.8 pg (27.0-31.0); MEAN CORPUSCULAR HGB CONC 27.9 g/dl (33.0-37.0); MEAN PLATELET VOLUME 9.5 fl (9.6-12.3); MONO # 0.7 10*3/uL (0.1-1.0); MONO % 9.3 % (3.0-9.0); NEUT # 4.9 10*3/uL (2.3-7.9); NEUT % 61.7 % (47.0-73.0); PLATELET COUNT AUTOMATED 255 10*3/uL (130-400); RED BLOOD COUNT 3.15 10*6/uL (4.10-5.10); RED CELL DISTRI WIDTH 16.8 % (0-14.5); WHITE BLOOD COUNT 7.9 10*3/uL (4.8-10.8)
[2018-08-25 22:33] LABS: ALKALINE PHOSPHATASE 114 U/L (45-117); BUN 46 mg/dl (7-24); CHLORIDE 117 mmol/L (98-107); CREATININE 1.51 mg/dL (0.55-1.02); POTASSIUM 4.8 mmol/L (3.5-5.1); SGOT/AST 14 IU/L (3-35); SGPT/ALT 16 U/L (12-78); SODIUM 146 mmol/L (136-145); TOTAL PROTEIN 7.7 gm/dL (6.4-8.2)
[2018-08-25 22:37] LABS: TROPONIN I < 0.015 ng/ml (<0.045)
--- NOTE | 2018-08-25 23:10 | NUR ---
[facility] NOTIFIED OF PATIENTS ADMISSION.
[2018-08-25 23:35] LABS: ACT PARTIAL THROMBO TIME 24.9 SECONDS (20.8-31.5)
[2018-08-25 23:55] VITALS: BP 152/58
--- NOTE | 2018-08-25 23:55 | NUR ---
Time: 2354 A 87 year old FEMALE admitted to under services of KEVON GEORGE DO. Pt. arrived via bed from ER. Chief complaint: Fall, GI bleed. PT SON AT BEDSIDE, PT AND FAMILY ORIENTED TO ROOM. BELONGINGS ACCOUNTED FOR. HEALTHY LIFESTYLES GUIDE REVIEWED. ISIS GONSALVES
[2018-08-26] MEDS ORDERED: COREG12.5 M1 PO (01:48)
[2018-08-26] MEDS ORDERED: COLACE100 MG PO (01:48)
[2018-08-26] MEDS ORDERED: DULCOLAX10 M1 R (01:49)
[2018-08-26] MEDS ORDERED: IRON325 M1 PO (01:52)
[2018-08-26] MEDS ORDERED: CLARITIN10 MG PO (01:53)
[2018-08-26] MEDS ORDERED: MILK OF MA400 MG/5 M PO (01:54)
[2018-08-26] MEDS ORDERED: PREPARATION H O28 GM R (01:57)
--- NOTE | 2018-08-26 02:12 | NUR ---
DR. PERRY NOTIFIED THAT PT'S SON WANTS HER TO BE A FULL CODE HOWEVER PT CAME WITH DNR-CC PAPERS AND IS ALERT AND ORIENTED. WHEN ASKED IF SHE WANTS US TO DO EVERYTHING TO KEEP HER ALIVE IN THE EVENT THAT HER HEART STOP BEATING OR SHE STOPS BREATHING SHE SAYS "NO" HOWEVER WHEN ASKED INDIVIDUAL QUESTIONS SUCH "DO YOU WANT CPR" SHE SAYS "YES". DR. PERRY STATED THAT THEY WILL DISCUSS THIS WITH HER IN THE MORNING, SHE REMAINS A DNR-CC.
--- NOTE | 2018-08-26 02:12 | NUR ---
DR. PERRY NOTIFIED MED REC IS UP TO DATE.
--- NOTE | 2018-08-26 02:13 | NUR ---
DR. PERRY NOTIFIED THAT PT IS REFUSING AN IV AFTER 4 FAILED ATTEMPTS INCLUDING 2 ATTEMPTS WITH THE ULTRA SOUND MACHINE. PT HAS NO IV ACCESS AT THIS TIME.
--- NOTE | 2018-08-26 02:51 | NUR ---
UNABLE TO OBTAIN ORTHOSTATIC BLOOD PRESSURES D/T PT INABILITY TO SIT/STAND
--- NOTE | 2018-08-26 06:26 | NUR ---
DR. LOPEZ NOTIFIED OF CONSULT. NO NEW ORDERS GIVEN.
[2018-08-26 06:42] LABS: BASO % 0.4 % (0.0-1.0); EOS # 0.3 10*3/uL (0.0-0.4); EOS % 4.1 % (1.0-4.0); HEMATOCRIT 26.5 % (37.0-47.0); HEMOGLOBIN 7.2 g/dl (12.0-16.0); LYMPH # 2.1 10*3/uL (1.3-4.4); MEAN CELL VOLUME 85.8 fl (81.0-99.0); MEAN CORPUSCULAR HGB 23.3 pg (27.0-31.0); MEAN CORPUSCULAR HGB CONC 27.2 g/dl (33.0-37.0); MEAN PLATELET VOLUME 9.5 fl (9.6-12.3); MONO # 0.6 10*3/uL (0.1-1.0); MONO % 8.1 % (3.0-9.0); NEUT # 4.7 10*3/uL (2.3-7.9); NEUT % 59.9 % (47.0-73.0); PLATELET COUNT AUTOMATED 275 10*3/uL (130-400); RED BLOOD COUNT 3.09 10*6/uL (4.10-5.10); RED CELL DISTRI WIDTH 16.8 % (0-14.5); WHITE BLOOD COUNT 7.9 10*3/uL (4.8-10.8)
[2018-08-26 06:58] LABS: ACT PARTIAL THROMBO TIME 23.9 SECONDS (20.8-31.5)
[2018-08-26 07:01] LABS: ALBUMIN 2.9 gm/dl (3.1-4.5); BUN 42 mg/dl (7-24); CHLORIDE 114 mmol/L (98-107); CHOLESTEROL 145 mg/dL (<200); CREATININE 1.34 mg/dL (0.55-1.02); PHOSPHOROUS 3.3 mg/dL (2.5-4.9); POTASSIUM 4.3 mmol/L (3.5-5.1); SGOT/AST 14 IU/L (3-35); SGPT/ALT 15 U/L (12-78); SODIUM 146 mmol/L (136-145); TRIGLYCERIDES 96 mg/dl (<150); VLDL CHOLESTEROL 19 mg/dL (6-40)
[2018-08-26 07:08] LABS: ALKALINE PHOSPHATASE 112 U/L (45-117); FREE T4 0.93 ng/dl (0.76-1.46); HDL CHOLESTEROL 40 mg/dl (40-60); LDL CHOLESTEROL 86 mg/dL (9-159); TOTAL PROTEIN 7.8 gm/dL (6.4-8.2)
[2018-08-26 08:00] VITALS: BP 149/64
--- NOTE | 2018-08-26 08:31 | NUR ---
Patient comes from [facility], correction care, can return when medically stable for discharge.
[2018-08-26 09:39] LABS: VITAMIN D, 25-HYDROXY 55.8 ng/mL (30-100)
[2018-08-26 12:00] VITALS: BP 156/67
[2018-08-26 16:00] VITALS: BP 151/42
--- NOTE | 2018-08-26 16:00 | NUR ---
TOOK OVER CARE OF PT AT THIS TIME. PT SITTING UP IN BED, ALERT AND COOPERATIVE, EATING DINNER. NO COMPLAINTS VOICED AT THIS TIME. RESPIRATIONS EASY AND UNLABORED. CALL LIGHT IN REACH.
[2018-08-26 20:00] VITALS: BP 143/67
[2018-08-27] VITALS: BP 152/43
[2018-08-27 06:34] LABS: BASO % 0.2 % (0.0-1.0); EOS # 0.3 10*3/uL (0.0-0.4); EOS % 3.5 % (1.0-4.0); HEMATOCRIT 25.6 % (37.0-47.0); HEMOGLOBIN 7.2 g/dl (12.0-16.0); LYMPH # 1.9 10*3/uL (1.3-4.4); MEAN CELL VOLUME 84.8 fl (81.0-99.0); MEAN CORPUSCULAR HGB 23.8 pg (27.0-31.0); MEAN CORPUSCULAR HGB CONC 28.1 g/dl (33.0-37.0); MEAN PLATELET VOLUME 9.8 fl (9.6-12.3); MONO # 0.8 10*3/uL (0.1-1.0); NEUT # 5.5 10*3/uL (2.3-7.9); NEUT % 64.8 % (47.0-73.0); PLATELET COUNT AUTOMATED 254 10*3/uL (130-400); RED BLOOD COUNT 3.02 10*6/uL (4.10-5.10); RED CELL DISTRI WIDTH 17.8 % (0-14.5); WHITE BLOOD COUNT 8.5 10*3/uL (4.8-10.8)
[2018-08-27 06:35] LABS: CREATININE 1.09 mg/dL (0.55-1.02); POTASSIUM 4.4 mmol/L (3.5-5.1)
[2018-08-27 08:00] VITALS: BP 158/54
--- NOTE | 2018-08-27 08:00 | NUR ---
PT RESTING IN BED NO DISTRESS NOTED. WILL MONITOR
--- NOTE | 2018-08-27 09:00 | NUR ---
patient will return to [facility] when medically stable, case management/program planner will follow
[2018-08-27] MEDS ORDERED: ELIQUIS5 M1 PO (11:35)
[2018-08-27] MEDS ORDERED: PROTONIX40 MG PO (11:35)
[2018-08-27 12:00] VITALS: BP 151/41
--- NOTE | 2018-08-27 12:20 | NUR ---
pt son notified of pt returning to [facility] today
--- NOTE | 2018-08-27 12:43 | NUR ---
Patient discharged to [facility], transportation scheduled for 3:30 PM with [facility], NH and fish and game warden notified
--- NOTE | 2018-08-27 14:10 | NUR ---
REPORT CALLED TO BULMARO MACIEL SPOKE WITH SRINIVAS
--- NOTE | 2018-08-27 14:29 | NUR ---
PHYSICAL THERAPY Patient being discharged. Thank you for this referral. Jeannine Partida,PT
--- NOTE | 2018-08-27 16:24 | NUR ---
Discharge instructions reviewed with patient/family. Patient receptive and verbalizes understanding. Follow-up care arranged. Written instructions given to patient/family. COREY WINSLOW
== END 2018-08-27 16:24 | disposition other institution (70) | DRG 377 ==
LOC: ED 21:14 → EDHOLD 23:10 → 4E 23:10
PROVIDERS: Family Medicine; Student in an Organized Health Care Education/Training Program; ADMIT Internal Medicine
DX: K92.2 Gastrointestinal hemorrhage, unspecified (principal); N17.0 Acute kidney failure with tubular necrosis; E87.0 Hyperosmolality and hypernatremia; E83.41 Hypermagnesemia; Z66 Do not resuscitate; D64.9 Anemia, unspecified; R73.9 Hyperglycemia, unspecified; E87.8 Other disorders of electrolyte and fluid balance, not elsewhere classified; G40.909 Epilepsy, unspecified, not intractable, without status epilepticus; Z51.5 Encounter for palliative care; F32.9 Major depressive disorder, single episode, unspecified; W18.30XA Fall on same level, unspecified, initial encounter; M19.90 Unspecified osteoarthritis, unspecified site; E86.0 Dehydration; Z96.641 Presence of right artificial hip joint; N18.9 Chronic kidney disease, unspecified; E78.5 Hyperlipidemia, unspecified; I12.9 Hypertensive chronic kidney disease with stage 1 through stage 4 chronic kidney disease, or unspecified chronic kidney disease; I48.0 Paroxysmal atrial fibrillation; S00.81XA Abrasion of other part of head, initial encounter; E66.3 Overweight; Z95.0 Presence of cardiac pacemaker; Z86.73 Personal history of transient ischemic attack (TIA), and cerebral infarction without residual deficits; Z88.2 Allergy status to sulfonamides; Y93.89 Activity, other specified; Y92.128 Other place in nursing home as the place of occurrence of the external cause; Y99.8 Other external cause status; Z88.8 Allergy status to other drugs, medicaments and biological substances; Z79.899 Other long term (current) drug therapy; Z86.718 Personal history of other venous thrombosis and embolism; Z90.49 Acquired absence of other specified parts of digestive tract; Z82.0 Family history of epilepsy and other diseases of the nervous system; Z79.01 Long term (current) use of anticoagulants

== ENCOUNTER 2018-08-28 10:31 | Inpatient (IN) | payer MEDICARE ==
[~2018-08-28] VITALS: Ht 160 cm; Wt 65.9 kg
--- NOTE | ~2018-08-28 | EKG ---
[place], [place] ELECTROCARDIOGRAM REPORT NAME: FREDDY PLUMMER UNIT #: [id number] ROOM: 521 DOCTOR: MARIO DRAFT REPORT BIRTHDATE: [birth year] [facility] Test Date: 2018-08-28 Test Time: 10:58:29 Pat Name: FREDDY PLUMMER Department: Room: 521 Gender: F Land Development Manager: : 1930 Requested By: THERON MON Order Number: [id number] Reading MD: Shaq Barrientos MD Measurements Intervals [place] Rate: 72 P: [place]: QRS: 52 QRSD: 89 T: QT: 424 QTc: 465 Interpretive Statements Accelerated junctional rhythm RSR' in V1 or V2, probably normal variant Compared to ECG 08/25/2018 22:13:36 Accelerated junctional rhythm now present RSR' in V1 or V2 now present Sinus rhythm no longer present First degree AV block no longer present Electronically Signed On 08-28-2018 17:44:41 PST by Shaq Barrientos MD CM:EKGRPT:ELECTROCARDIOGRAM REPORT [id number] THERON MAURER DRAFT REPORT THERON MON DO
[~2018-08-28 10:31] MED LIST changes: +CLARITIN10 MG PO; +COLACE100 MG PO; +COREG12.5 M1 PO; +IRON325 M1 PO; +PREPARATION H O28 GM R; +PROTONIX40 MG PO
[2018-08-28 10:32] VITALS: BP 113/41
[2018-08-28 11:22] LABS: BASO % 0.3 % (0.0-1.0); EOS # 0.2 10*3/uL (0.0-0.4); EOS % 1.5 % (1.0-4.0); HEMATOCRIT 28.9 % (37.0-47.0); HEMOGLOBIN 8.2 g/dl (12.0-16.0); LYMPH # 1.4 10*3/uL (1.3-4.4); LYMPH % 12.3 % (27.0-41.0); MEAN CELL VOLUME 86.3 fl (81.0-99.0); MEAN CORPUSCULAR HGB 24.5 pg (27.0-31.0); MEAN CORPUSCULAR HGB CONC 28.4 g/dl (33.0-37.0); MEAN PLATELET VOLUME 9.7 fl (9.6-12.3); MONO # 1.3 10*3/uL (0.1-1.0); MONO % 11.3 % (3.0-9.0); NEUT # 8.6 10*3/uL (2.3-7.9); NEUT % 74.2 % (47.0-73.0); PLATELET COUNT AUTOMATED 266 10*3/uL (130-400); RED BLOOD COUNT 3.35 10*6/uL (4.10-5.10); RED CELL DISTRI WIDTH 19.4 % (0-14.5); WHITE BLOOD COUNT 11.6 10*3/uL (4.8-10.8)
[2018-08-28 11:40] LABS: ALBUMIN 2.8 gm/dl (3.1-4.5); CREATININE 1.35 mg/dL (0.55-1.02); POTASSIUM 4.5 mmol/L (3.5-5.1); TOTAL PROTEIN 7.7 gm/dL (6.4-8.2); TROPONIN I 0.027 ng/ml (<0.045)
[2018-08-28 11:55] LABS: PHENOBARBITAL (LUMINAL) 14.9 ug/ml (15-40)
[2018-08-28 12:00] VITALS: BP 168/59
--- NOTE | 2018-08-28 12:05 | NUR ---
INCONTIENT OF STOOL. PT CLEANSED AND PLACED IN A CLEAN DEPEND.
[2018-08-28 12:14] LABS: BILIRUBIN NEGATIVE (NEGATIVE); BLOOD TRACE-LYSED (NEGATIVE); CLARITY CLOUDY (CLEAR); COLOR YELLOW (YELLOW); GLUCOSE NEGATIVE (NEGATIVE); KETONE NEGATIVE (NEGATIVE); LEUKO ESTERASE 1+ (NEGATIVE); NITRITE NEGATIVE (NEGATIVE); UROBILINOGEN 0.2 E.U./dl (0.2-1.0)
[2018-08-28 12:55] LABS: BACTERIA 4+; WBC 51-100 wbc/hpf (0-5)
[2018-08-28 15:01] VITALS: BP 165/51
--- NOTE | 2018-08-28 15:01 | NUR ---
RESTING IN BED WITH EYES CLOSED. RESPS ARE EASY AND NON LABORED.
[2018-08-28 15:10] VITALS: BP 168/59
--- NOTE | 2018-08-28 15:10 | NUR ---
A 87, admitted to 5E, under the services of RUSSEL Oshea DO with a diagnosis of UTI, METABOLIC ENCEPHALOPATHY, DEHYDRATION. Chief complaint is DECREASED LOC. Patient arrived via bed from ER. Initial assessment completed. Vital signs taken and recorded. RUSSEL OSHEA DO notified of admission to the unit. Orders received. See assessment for past medical history, medications and allergies. Patient and/or family oriented to unit. [address] visitation policy reviewed. Clothing/patient valuable form completed. SKIN INTACT WITH NO WOUNDS. REFUSES FLU VACCINATION JANE PEARSON
--- NOTE | 2018-08-28 17:22 | NUR ---
[facility]IVE CARE CONSULT. STORE SPECIALIST WILL FAX REQUIRED PAPERWORK
[2018-08-28 20:00] VITALS: BP 145/37
[2018-08-29] VITALS: BP 168/74
[2018-08-29 06:25] LABS: BASO % 0.3 % (0.0-1.0); EOS # 0.3 10*3/uL (0.0-0.4); EOS % 3.4 % (1.0-4.0); HEMATOCRIT 26.5 % (37.0-47.0); HEMOGLOBIN 7.3 g/dl (12.0-16.0); LYMPH # 1.8 10*3/uL (1.3-4.4); LYMPH % 19.4 % (27.0-41.0); MEAN CELL VOLUME 86.9 fl (81.0-99.0); MEAN CORPUSCULAR HGB 23.9 pg (27.0-31.0); MEAN CORPUSCULAR HGB CONC 27.5 g/dl (33.0-37.0); MEAN PLATELET VOLUME 9.9 fl (9.6-12.3); MONO # 1.1 10*3/uL (0.1-1.0); MONO % 11.9 % (3.0-9.0); NEUT # 5.9 10*3/uL (2.3-7.9); NEUT % 64.7 % (47.0-73.0); PLATELET COUNT AUTOMATED 242 10*3/uL (130-400); RED BLOOD COUNT 3.05 10*6/uL (4.10-5.10); RED CELL DISTRI WIDTH 19.6 % (0-14.5); WHITE BLOOD COUNT 9.1 10*3/uL (4.8-10.8)
[2018-08-29 06:28] LABS: CREATININE 1.18 mg/dL (0.55-1.02); PHOSPHOROUS 3.6 mg/dL (2.5-4.9); POTASSIUM 4.1 mmol/L (3.5-5.1)
--- NOTE | 2018-08-29 06:44 | NUR ---
THIS NURSE NOTIFIED PT WAS FOUND LAYING ON FLOOR. VSS. DR WALTERS AND DR CRUMP ON FLOOR NOTIFIED AND IN TO SEE PT. ON ASSESSMENT BRUISE NOTED TO RT SIDE OF HEAD IN PT'S HAIRLINE.
[2018-08-29 08:00] VITALS: BP 160/58
[2018-08-29 12:00] VITALS: BP 158/60
--- NOTE | 2018-08-29 12:05 | NUR ---
PT IS SHELTER CARE AT [facility] AND CAN RETURN WHEN MEDICALLY STABLE. WILL CONTINUE TO FOLLOW.
[2018-08-29 16:00] VITALS: BP 174/49
--- NOTE | 2018-08-29 18:08 | NUR ---
PATIENT SPIKED A TEMP OF 101.7 ORAL. THE PATIENT WAS GIVEN TYLONEL FOR THE TEMP. AFTER RECHECK TEMP THE PATIENTS TEMP DROPPED TO 101.1. DR. MURPHY WAS NOTIFIED AND STATED TO KEEP AN EYE ON IT RIGHT NOW. WILL RECHECK TEMP AT 1930.
[2018-08-29 20:00] VITALS: BP 148/52
[2018-08-29 22:00] VITALS: BP 148/52
[2018-08-30] VITALS: BP 146/57
[2018-08-30 06:25] LABS: BASO % 0.3 % (0.0-1.0); EOS # 0.6 10*3/uL (0.0-0.4); EOS % 6.3 % (1.0-4.0); HEMATOCRIT 26.3 % (37.0-47.0); HEMOGLOBIN 7.3 g/dl (12.0-16.0); LYMPH # 1.5 10*3/uL (1.3-4.4); LYMPH % 17.4 % (27.0-41.0); MEAN CELL VOLUME 88.9 fl (81.0-99.0); MEAN CORPUSCULAR HGB 24.7 pg (27.0-31.0); MEAN CORPUSCULAR HGB CONC 27.8 g/dl (33.0-37.0); MEAN PLATELET VOLUME 9.6 fl (9.6-12.3); MONO # 1.1 10*3/uL (0.1-1.0); NEUT # 5.5 10*3/uL (2.3-7.9); NEUT % 63.4 % (47.0-73.0); PLATELET COUNT AUTOMATED 207 10*3/uL (130-400); RED BLOOD COUNT 2.96 10*6/uL (4.10-5.10); RED CELL DISTRI WIDTH 19.9 % (0-14.5); WHITE BLOOD COUNT 8.7 10*3/uL (4.8-10.8)
[2018-08-30 06:44] LABS: CREATININE 1.18 mg/dL (0.55-1.02); POTASSIUM 4.3 mmol/L (3.5-5.1)
--- NOTE | 2018-08-30 07:42 | NUR ---
Patient is intermediate card tender care at [facility] and can return when medically stable for discharge.
[2018-08-30 08:00] VITALS: BP 130/42
--- NOTE | 2018-08-30 08:01 | NUR ---
Pulled IV out this morning, several attempts to restart by 3 nurses, unsuccessful. Dr. Tanner notified.
--- NOTE | 2018-08-30 10:36 | NUR ---
WHEN BRINGING PATIENTS HER MORNING MEDS I ATTEMPED TO WAKE PATIENT. AFTER CALLING FOR PATIENT AND STERNAL RUB THE PATIENT PATIENT DID NOT AWAKE. DR. MURPHY WAS CALLED UP AND ASSESSED PATIENT. CT OF THE HEAD WAS ORDERED. BGM WAS 108, ALL VITALS NORMAL. THE PATIENT WAS FINALLY AWAKE AFTER MULTIPLE ATTEMPS TO WAKE HER. AFTER SHE AWOKE THE PATIENT WAS ALERT WITHIN NORMAL LIMITS AND STATED THAT SHE WAS VERY TIRED. NEW I WAS PLACED IN THE LAC.
[2018-08-30 16:00] VITALS: BP 120/50
[2018-08-30 20:00] VITALS: BP 160/50
--- NOTE | 2018-08-30 22:00 | NUR ---
PATIENT STATES SHE IS HAVING LEG PAIN RATED AT A 7. PTN TYLENOL WAS ADMINISTERED. WILL MONITOR FOR EFFECTIVENESS.
--- NOTE | 2018-08-30 23:14 | NUR ---
PATIENT SLEEPING. PREVIOUS PRN TYLENOL CONSIDERED EFFECTIVE.
[2018-08-31] VITALS: BP 159/52
[2018-08-31 06:13] LABS: BASO % 0.4 % (0.0-1.0); EOS # 0.7 10*3/uL (0.0-0.4); EOS % 7.1 % (1.0-4.0); HEMATOCRIT 27.2 % (37.0-47.0); HEMOGLOBIN 7.6 g/dl (12.0-16.0); LYMPH # 1.3 10*3/uL (1.3-4.4); LYMPH % 13.7 % (27.0-41.0); MEAN CELL VOLUME 86.6 fl (81.0-99.0); MEAN CORPUSCULAR HGB 24.2 pg (27.0-31.0); MEAN CORPUSCULAR HGB CONC 27.9 g/dl (33.0-37.0); MEAN PLATELET VOLUME 9.9 fl (9.6-12.3); MONO # 1.1 10*3/uL (0.1-1.0); MONO % 11.6 % (3.0-9.0); NEUT # 6.4 10*3/uL (2.3-7.9); NEUT % 66.7 % (47.0-73.0); PLATELET COUNT AUTOMATED 223 10*3/uL (130-400); RED BLOOD COUNT 3.14 10*6/uL (4.10-5.10); RED CELL DISTRI WIDTH 20.2 % (0-14.5); WHITE BLOOD COUNT 9.6 10*3/uL (4.8-10.8)
[2018-08-31 06:44] LABS: POTASSIUM 4.1 mmol/L (3.5-5.1)
[2018-08-31 06:45] LABS: CREATININE 1.09 mg/dL (0.55-1.02)
[2018-08-31 08:00] VITALS: BP 160/56
--- NOTE | 2018-08-31 10:13 | NUR ---
PATIENT MIDLINE WAS UNABLE TO FLUSH AND HAD NO BLOOD RETURN. PATIENTS ARM WAS ALSO RED AND SWOLLEN FROM LAST IV ANTIBIOTIC USE. THE MIDLINE DRESSING WAS REPLACED WITH NO SUCCESS TO HELP MIDLINE. MIDLINE WAS REMOVED AND DR. GARCIA WAS NOTIFIED.
[2018-08-31 12:00] VITALS: BP 150/50
--- NOTE | 2018-08-31 15:37 | NUR ---
DR. GARCIA WAS NOTIFIED THAT THE PATIENT DENIES TO HAVE ANOTHER IV PLACED AT THIS TIME. THE PATIENT WAS AGREED TO HAVE A MIDLINE OR PICC PLACED FOR LONGEVITY OF ACCESS. PLAN IS IN PROCESS.
[2018-08-31 16:00] VITALS: BP 142/60
--- NOTE | 2018-08-31 17:46 | NUR ---
PATIENT STILL REFUSED AN IV START AT THIS TIME.
[2018-08-31 20:00] VITALS: BP 121/77
[2018-09-01] VITALS: BP 142/65
--- NOTE | 2018-09-01 02:40 | NUR ---
Shift chart check completed.
[2018-09-01 06:22] LABS: BASO % 0.3 % (0.0-1.0); EOS # 0.5 10*3/uL (0.0-0.4); EOS % 5.2 % (1.0-4.0); HEMATOCRIT 25.6 % (37.0-47.0); HEMOGLOBIN 7.2 g/dl (12.0-16.0); LYMPH # 1.3 10*3/uL (1.3-4.4); MEAN CELL VOLUME 86.5 fl (81.0-99.0); MEAN CORPUSCULAR HGB 24.3 pg (27.0-31.0); MEAN CORPUSCULAR HGB CONC 28.1 g/dl (33.0-37.0); MEAN PLATELET VOLUME 9.6 fl (9.6-12.3); MONO # 1.2 10*3/uL (0.1-1.0); MONO % 13.3 % (3.0-9.0); NEUT % 66.8 % (47.0-73.0); PLATELET COUNT AUTOMATED 222 10*3/uL (130-400); RED BLOOD COUNT 2.96 10*6/uL (4.10-5.10); RED CELL DISTRI WIDTH 20.5 % (0-14.5)
[2018-09-01 06:47] LABS: BUN 19 mg/dl (7-24); CHLORIDE 113 mmol/L (98-107); CREATININE 1.04 mg/dL (0.55-1.02); POTASSIUM 4.2 mmol/L (3.5-5.1); SODIUM 140 mmol/L (136-145)
[2018-09-01 08:00] VITALS: BP 150/48
[2018-09-01 12:00] VITALS: BP 100/50
[2018-09-01 16:00] VITALS: BP 168/53
--- NOTE | 2018-09-01 17:53 | NUR ---
PATIENT WAS GIVEN TYLENOL FOR A TEMP OF 100.4. DR. GARCIA WAS NOTIFIED. THE PATIENT AGREED FOR A TEMP IV UNTIL PICC OR MIDLINE COULD BE PLACED. IV STARTED.
--- NOTE | 2018-09-01 18:49 | NUR ---
PATIENT TEMP IS BETTER AT 99.4. PATIENT HAS NO COMPLAINTS
[2018-09-01 20:32] VITALS: BP 142/50
[2018-09-02] VITALS: BP 159/47
--- NOTE | 2018-09-02 07:00 | NUR ---
BEDSDIE REPORT OBTAINED FROM ASHLIE TAMEZ. PATIENT APPEARS TO BE ASLEEP, EYES CLOSED. NO S&S OF DISTRESS NOTED, RESP ARE ERND ON ROOM AIR. BED IS LOCKED IN LOWEST POSITION, ALARM MAINTAINED. CALL LIGHT LEFT WITHIN REACH.
[2018-09-02 08:00] VITALS: BP 148/72; BP 188/50
--- NOTE | 2018-09-02 08:30 | NUR ---
ASSESSMENT COMPLETED. PATIENT EASILY AROUSABLE, VOICED NO COMPLAINTS AT THIS TIME. MORNING MEDS PROVIDED. PATIENT REPOSITIONED FOR COMFORT. CALL LIGHT LEFT WITHIN REACH.
--- NOTE | 2018-09-02 09:32 | NUR ---
Escobar deltona stated patient is ok to return with ertapenem for 5 to 7 days.
[2018-09-02 12:00] VITALS: BP 103/48; BP 151/44
--- NOTE | 2018-09-02 12:29 | NUR ---
PT CAN RETURN TO [facility] WHEN MEDICALLY STABLE.
[2018-09-02] MEDS ORDERED: ELIQUIS5 M1 PO (12:48)
[2018-09-02] MEDS ORDERED: ERTAPENEM1 GM IV (12:51)
--- NOTE | 2018-09-02 12:58 | NUR ---
Hep Lock discontinued TO LEFT HAND. Site symptomatic, LEAKING AT SITE. Pressure applied. Sterile dressing applied. ZOSYN NOT PROVIDED, AT BEDSIDE AND AWARE. ASHLIE CORNEJO
[2018-09-02] MEDS ORDERED: ERTAPENEM1 GM IM (13:21)
--- NOTE | 2018-09-02 14:42 | NUR ---
patient is discharged to return to [facility]. Transportation scheduled for 4 PM with [facility]; NH and shop steward notified. Discharge information faxed.
--- NOTE | 2018-09-02 15:38 | NUR ---
[id number] REPORT PROVIDED TO [facility] NURSE.
--- NOTE | 2018-09-02 16:27 | NUR ---
Discharge instructions reviewed with patient. Patient receptive and verbalizes understanding. Follow-up care TO BE arranged AT [facility]. Written instructions given to AMBULANCE. ASHLIE CORNEJO
== END 2018-09-02 16:27 | disposition other institution (70) | DRG 70 ==
LOC: ED 10:31 → 5E 13:30 → EDHOLD 13:30 → 5E 15:12
PROVIDERS: Emergency Medicine; Student in an Organized Health Care Education/Training Program; ADMIT Internal Medicine
PROC: 05HY33Z Insertion of Infusion Device into Upper Vein, Percutaneous Approach (ICD-10-PCS; principal; 2018-08-30)
PROC: B54NZZA Ultrasonography of Left Upper Extremity Veins, Guidance (ICD-10-PCS; principal; 2018-08-30)
DX: G93.41 Metabolic encephalopathy (principal); N17.0 Acute kidney failure with tubular necrosis; E43 Unspecified severe protein-calorie malnutrition; N30.01 Acute cystitis with hematuria; E87.2 Acidosis; I48.2 Chronic atrial fibrillation; E86.0 Dehydration; D64.9 Anemia, unspecified; E87.8 Other disorders of electrolyte and fluid balance, not elsewhere classified; R73.9 Hyperglycemia, unspecified; Z96.641 Presence of right artificial hip joint; E83.41 Hypermagnesemia; I10 Essential (primary) hypertension; G40.909 Epilepsy, unspecified, not intractable, without status epilepticus; B96.20 Unspecified Escherichia coli [E. coli] as the cause of diseases classified elsewhere; F32.9 Major depressive disorder, single episode, unspecified; M19.90 Unspecified osteoarthritis, unspecified site; E66.3 Overweight; Z66 Do not resuscitate; Z51.5 Encounter for palliative care; W06.XXXA Fall from bed, initial encounter; Y93.89 Activity, other specified; Y92.89 Other specified places as the place of occurrence of the external cause; Y99.8 Other external cause status; Z87.440 Personal history of urinary (tract) infections; Z88.8 Allergy status to other drugs, medicaments and biological substances; Z88.2 Allergy status to sulfonamides; Z86.73 Personal history of transient ischemic attack (TIA), and cerebral infarction without residual deficits; Z86.718 Personal history of other venous thrombosis and embolism; Z90.49 Acquired absence of other specified parts of digestive tract; Z95.0 Presence of cardiac pacemaker; Z82.0 Family history of epilepsy and other diseases of the nervous system; Z79.899 Other long term (current) drug therapy; Z68.25 Body mass index [BMI] 25.0-25.9, adult

== ENCOUNTER 2018-10-27 07:09 | Emergency (ER) | payer MEDICARE ==
[~2018-10-27 07:09] MED LIST changes: -ACIDOPHILUS LA1 EACH PO; +ACIDOPHILUS LACT1 GM PO; +ERTAPENEM1 GM IM; +ERTAPENEM1 GM IV
[2018-10-27 08:50] VITALS: BP 164/70
[2018-10-27 09:21] LABS: BASO % 0.2 % (0.0-1.0); EOS # 0.2 10*3/uL (0.0-0.4); EOS % 1.7 % (1.0-4.0); HEMOGLOBIN 10.5 g/dl (12.0-16.0); LYMPH # 1.3 10*3/uL (1.3-4.4); LYMPH % 14.3 % (27.0-41.0); MEAN CELL VOLUME 82.9 fl (81.0-99.0); MEAN CORPUSCULAR HGB 24.9 pg (27.0-31.0); MEAN PLATELET VOLUME 9.7 fl (9.6-12.3); MONO # 0.7 10*3/uL (0.1-1.0); MONO % 7.9 % (3.0-9.0); NEUT # 6.8 10*3/uL (2.3-7.9); NEUT % 75.6 % (47.0-73.0); PLATELET COUNT AUTOMATED 267 10*3/uL (130-400); RED BLOOD COUNT 4.22 10*6/uL (4.10-5.10); RED CELL DISTRI WIDTH 17.7 % (0-14.5); WHITE BLOOD COUNT 8.9 10*3/uL (4.8-10.8)
[2018-10-27 09:36] LABS: ACT PARTIAL THROMBO TIME 24.7 SECONDS (20.8-31.5)
[2018-10-27 09:43] LABS: ALBUMIN 2.9 gm/dl (3.1-4.5); ALKALINE PHOSPHATASE 125 U/L (45-117); BUN 18 mg/dl (7-24); CHLORIDE 111 mmol/L (98-107); CREATININE 0.99 mg/dL (0.55-1.02); SGOT/AST 15 IU/L (3-35); SGPT/ALT 12 U/L (12-78); SODIUM 142 mmol/L (136-145)
[2018-11-14] MEDS ORDERED: ANTIBIOTIC28.4 GM T (06:38)
[2018-11-14] MEDS ORDERED: PREPARATION H26 GM R (06:49)
[2018-11-14] MEDS ORDERED: ROBITUSSIN-DM 110 ML PO (06:51)
[2018-11-14] MEDS ORDERED: HEPARIN10000 UNIT SC (06:57)
[2018-11-14] MEDS ORDERED: PHENYTOIN125 MG/5 M PO (06:58)
[2018-11-20] MEDS ORDERED: REMEDY CALAZIME4 GM T (11:29)
[2018-11-20] MEDS ORDERED: ERTAPENEM1 GM IV (11:29)
[2018-11-23] MEDS ORDERED: ERTAPENEM1 GM IV (17:25)
[2018-11-23] MEDS ORDERED: Ipratropium Brom3 ML INH (17:28)
[2019-02-12] MEDS ORDERED: AGGRENOX 25/2001 EA PO (02:00)
[2019-02-12] MEDS ORDERED: PLAVIX75 M1 PO (02:00)
[2019-02-12] MEDS ORDERED: VITAMIN B1250 MCG PO (02:01)
[2019-02-14] MEDS ORDERED: ERTAPENEM1 GM IV (11:40)
== END 2018-10-27 09:32 | disposition short-term general hospital (02) ==
LOC: ED 07:09
PROVIDERS: Emergency Medicine
DX: S06.5X9A Traumatic subdural hemorrhage with loss of consciousness of unspecified duration, initial encounter (principal); S01.01XA Laceration without foreign body of scalp, initial encounter; I48.91 Unspecified atrial fibrillation; I10 Essential (primary) hypertension; Z88.2 Allergy status to sulfonamides; Z88.8 Allergy status to other drugs, medicaments and biological substances; Z79.899 Other long term (current) drug therapy; Z79.01 Long term (current) use of anticoagulants; Z86.73 Personal history of transient ischemic attack (TIA), and cerebral infarction without residual deficits; Z90.49 Acquired absence of other specified parts of digestive tract; Z95.0 Presence of cardiac pacemaker; W05.0XXA Fall from non-moving wheelchair, initial encounter; Y93.89 Activity, other specified; Y92.128 Other place in nursing home as the place of occurrence of the external cause; Y99.8 Other external cause status

== ENCOUNTER 2019-07-19 14:46 | Emergency (ER) | payer MEDICARE ==
--- NOTE | ~2019-07-19 | EKG ---
[place], [place] ELECTROCARDIOGRAM REPORT NAME: FREDDY PLUMMER UNIT #: [id number] ROOM: DOCTOR: EPIPHANY DRAFT REPORT BIRTHDATE: [birth year] [facility] Test Date: 2019-07-19 Test Time: 16:11:22 Pat Name: FREDDY PLUMMER Department: Room: Gender: F Behavior Management Specialist: : 1930 Requested By: ANN LEWIS Order Number: [id number] Reading MD: Ciara Joseph MD Measurements Intervals [place] Rate: 50 P: 125 IN: 170 QRS: -65 QRSD: 138 T: 99 QT: 515 QTc: 470 Interpretive Statements Ventricular-paced rhythm No further analysis attempted due to paced rhythm Compared to ECG 02/20/2019 20:27:23 Atrial fibrillation no longer present Electronically Signed On 07-20-2019 12:27:18 PST by Ciara Joseph MD CM:EKGRPT:ELECTROCARDIOGRAM REPORT [id number] 1227 ANN MARTIN DRAFT REPORT ANN LEWIS M.D.
[~2019-07-19 14:46] MED LIST changes: +ANTIBIOTIC28.4 GM T; +HEPARIN10000 UNIT SC; +Ipratropium Brom3 ML INH; +PHENYTOIN125 MG/5 M PO; +PLAVIX75 M1 PO; +PREPARATION H26 GM R; +REMEDY CALAZIME4 GM T; +ROBITUSSIN-DM 110 ML PO; +VITAMIN B1250 MCG PO
[2019-07-19 15:39] LABS: BASO % 0.6 % (0.0-1.0); EOS # 0.3 10*3/uL (0.0-0.4); EOS % 3.5 % (1.0-4.0); HEMATOCRIT 37.6 % (37.0-47.0); HEMOGLOBIN 11.4 g/dl (12.0-16.0); LYMPH % 27.5 % (27.0-41.0); MEAN CELL VOLUME 97.7 fl (81.0-99.0); MEAN CORPUSCULAR HGB 29.6 pg (27.0-31.0); MEAN CORPUSCULAR HGB CONC 30.3 g/dl (33.0-37.0); MEAN PLATELET VOLUME 9.5 fl (9.6-12.3); MONO # 0.9 10*3/uL (0.1-1.0); MONO % 11.8 % (3.0-9.0); NEUT # 4.1 10*3/uL (2.3-7.9); NEUT % 56.5 % (47.0-73.0); PLATELET COUNT AUTOMATED 238 10*3/uL (130-400); RED BLOOD COUNT 3.85 10*6/uL (4.10-5.10); RED CELL DISTRI WIDTH 14.3 % (0-14.5); WHITE BLOOD COUNT 7.2 10*3/uL (4.8-10.8)
[2019-07-19 15:55] LABS: ALBUMIN 2.9 gm/dl (3.1-4.5); ALKALINE PHOSPHATASE 121 U/L (45-117); BUN 16 mg/dl (7-24); CHLORIDE 109 mmol/L (98-107); CREATININE 0.87 mg/dL (0.55-1.02); POTASSIUM 4.5 mmol/L (3.5-5.1); SGOT/AST 26 IU/L (3-35); SGPT/ALT 26 U/L (12-78); SODIUM 139 mmol/L (136-145); TOTAL PROTEIN 7.1 gm/dL (6.4-8.2)
[2019-07-19 15:57] LABS: BILIRUBIN NEGATIVE (NEGATIVE); BLOOD NEGATIVE (NEGATIVE); CLARITY SL CLOUDY (CLEAR); COLOR YELLOW (YELLOW); GLUCOSE NEGATIVE (NEGATIVE); KETONE NEGATIVE (NEGATIVE); LEUKO ESTERASE 3+ (NEGATIVE); NITRITE POSITIVE (NEGATIVE); UROBILINOGEN 0.2 E.U./dl (0.2-1.0)
[2019-07-19 16:13] LABS: BACTERIA 4+; WBC TNTC wbc/hpf (0-5)
[2019-07-19 17:00] VITALS: BP 145/82
[2019-07-19] MEDS ORDERED: LEVOFLOXACIN250 M2 PO (18:08)
== END 2019-07-19 19:30 ==
LOC: ED 14:46
PROVIDERS: Emergency Medicine
DX: N39.0 Urinary tract infection, site not specified (principal); R45.851 Suicidal ideations; M19.90 Unspecified osteoarthritis, unspecified site; I48.91 Unspecified atrial fibrillation; G40.909 Epilepsy, unspecified, not intractable, without status epilepticus; F32.9 Major depressive disorder, single episode, unspecified; E78.5 Hyperlipidemia, unspecified; I13.0 Hypertensive heart and chronic kidney disease with heart failure and stage 1 through stage 4 chronic kidney disease, or unspecified chronic kidney disease; E11.22 Type 2 diabetes mellitus with diabetic chronic kidney disease; N18.9 Chronic kidney disease, unspecified; Z88.2 Allergy status to sulfonamides; Z88.8 Allergy status to other drugs, medicaments and biological substances; Z79.899 Other long term (current) drug therapy; Z79.82 Long term (current) use of aspirin; Z86.718 Personal history of other venous thrombosis and embolism